=== PATIENT | male | born 1985 | race Caucasian/White ===

== ENCOUNTER → 2018-02-28 08:58 | Outpatient (CLI) | payer BC, SELFPAY ==
--- NOTE | 2018-02-28 09:03 | US_ITS ---
US abdomen complete HISTORY: ITS.REASON: LLQ PAIN ORDERING PHYSICIAN: Alysa Baxter PATIENT AGE: 33 years COMPARISON: None FINDINGS: PANCREAS:Unremarkable. No obvious mass or abnormal fluid collection. No ductal dilatation LIVER:There is diffuse fatty liver. No focal liver lesion or ductal dilatation. RIGHT KIDNEY:Unremarkable. Normal size and echogenicity. No hydronephrosis LEFT KIDNEY:Unremarkable. No hydronephrosis. Normal size and echogenicity. GALLBLADDER:No gallstones, gallbladder wall thickening, pericholecystic fluid, or biliary dilatation. AORTA:Not imaged SPLEEN:Unremarkable. Normal size and echogenicity ASCITES:None demonstrated. IMPRESSION: Diffuse fatty liver otherwise negative abdominal ultrasound
== END ==
PROVIDERS: Family Provider Internal Medicine Adolescent Medicine; PCP Internal Medicine Adolescent Medicine; Visit Provider Nurse Practitioner Family
DX: R10.32 Left lower quadrant pain (principal)
CPT/HCPCS: 76700

== ENCOUNTER 2019-12-30 08:41 | Emergency (ER) | payer BC, SELFPAY ==
[2019-12-30 08:53] VITALS: BP 127/69; PULSE 66; RESP 18; TEMP 37; O2SAT 99; BMI 39.3
--- NOTE | 2019-12-30 08:57 | CT_ITS ---
PROCEDURE: CT ABDOMEN PELVIS WO CON CLINICAL INDICATION: r/o stone Right flank pain COMPARISON: ABDPELW/O CT ABD PELVIS W/O CONTRAST from 07/28/2017 TECHNIQUE: Axial images obtained with sagittal and coronal reformats. All CT scans at the facility use one or more dose reduction, viz: automated exposure control, ma/kV adjustment per patient size (including targeted exams where dose is matched to indication, i.e. head), or iterative reconstruction technique. FINDINGS: LOWER THORAX: No acute finding ABDOMEN & PELVIS: There is diffuse fatty liver infiltration. The gallbladder, spleen, adrenal glands, and pancreas have an unremarkable appearance. There are scattered small bilateral renal calculi measuring up to 4 mm in the lower pole on the right and 5 mm in the lower pole on the left. There is mild right hydronephrosis and hydroureter secondary to a 5 mm stone at the right ureterovesical junction. There is some minimal stranding of the right perinephric and proximal periureteral fat. No evidence of appendicitis, intestinal obstruction, or free air. The IMPRESSION: 1. 5 mm right ureterovesical junction stone with mild right-sided obstructive uropathy. 2. Bilateral nephrolithiasis. 3. Fatty liver Dictated by: Viraj Huerta MD 12/30/2019 09:24 Electronically signed by Viraj Huerta MD in [place] 12/30/2019 09:24
[2019-12-30 09:02] LABS: Microscopic, Urine URINE MICROSCOPIC (MICROSCOPIC)
[2019-12-30 09:05] LABS: Appearance,Urine CLEAR (Clear); Bilirubin,Urine Negative (Negative); Blood, Urine 3+ (Negative); Color,Urine YELLOW (Yellow); Glucose,Urine (UA) Negative (Negative); Ketones,Urine Negative (Negative); Leukocyte Esterase,Urine Negative (Negative); Nitrate,Urine Negative (Negative); PH,Urine 6.5 (5.0-8.5); Protein,Urine 1+ (Negative); Specific Gravity, Urine 1.025 (1.005-1.030); Urobilinogen,Urine 0.2 EU/dl (0.2)
[2019-12-30 09:10] LABS: Alanine Aminotransferase 51 U/L (12-78); Albumin Level 4.8 g/dl (3.5-5.0); Albumin/Globulin Ratio 1.5 (1.1-1.8); Alkaline Phosphatase 67 U/L (38-126); Anion Gap 14.5 mEq/L (5-15); Aspartate Amino Transferase 51 U/L (17-59); Bilirubin,Total 0.4 mg/dl (0.2-1.3); Blood Urea Nitrogen 15 mg/dl (9-20); Calcium 9.7 mg/dl (8.4-10.2); Carbon Dioxide 25 mmol/L (22.0-30.0); Chloride 103 mmol/L (98-107); Creatinine Clearance Estimated 192 mL/min (50-200); Estimated Glomerular Filt Rate 85 ml/min (>60); GFR (African American) 103 ML/MIN (>60); Globulin 3.3 g/dL (1.3-3.2); Glucose 156 mg/dl (74-100); Potassium 3.5 mmoL/L (3.5-5.1); Sodium 139 mmol/L (136-145); Total Protein,Serum 8.1 g/dl (6.3-8.2)
[2019-12-30 09:15] LABS: Basophils % 0.3 % (0.1-2.0); Eosinophils % 0.1 % (0.1-12.0); Hematocrit 46.5 % (42.0-52.0); Hemoglobin 15.3 g/dL (14.1-18.0); Lymphocytes # 1.2 K/mm3 (0.7-4.5); Lymphocytes % 10.1 % (10-50); Mean Corpuscular HGB Conc 32.9 g/dL (31.8-35.4); Mean Corpuscular Volume 91.3 fl (80-94); Mean Platelet Volume 8.2 fl (7.4-10.4); Monocytes # 0.5 K/mm3 (0.1-1.0); Monocytes % 4.2 % (1.7-9.3); Neutrophils # 10.4 K/mm3 (1.8-7.8); Neutrophils % 85.2 % (37.0-80.0); Platelet Count 272 K/mm3 (142-424); Red Blood Count 5.09 M/mm3 (4.60-6.20); Red Cell Distribution Width 13.2 % (11.5-17.5); White Blood Count 12.2 K/mm3 (4.8-10.8)
[2019-12-30 09:18] LABS: WBC,Urine Occasional #/hpf (0-3)
[2019-12-30 09:19] LABS: Bacteria,Urine Trace /lpf; Squamous Epithelial Cell,Urine Occasional #/hpf (0-5)
[2019-12-30 09:22] LABS: MANUAL DIFFERENTIAL MANUAL DIFFERENTIAL (MANUAL DIFF)
[2019-12-30 09:28] LABS: Lymphocytes % 13 % (10-50); Monocytes % 5 % (2-9); Neutrophils % 82 % (42-76); Platelet Estimate Normal; RBC Morphology Normal; Total Cells Counted 100
[2019-12-30 09:36] VITALS: BP 123/69; PULSE 64; RESP 18; TEMP 36.7; O2SAT 98
--- NOTE | 2019-12-30 10:15 | PC.NURSE ---
dr chavarria returned call
--- NOTE | 2019-12-30 10:30 | PC.NURSE ---
Doc at bedside
--- NOTE | 2019-12-30 10:35 | PC.NURSE ---
call to dr chavarria
[2019-12-30 10:39] VITALS: BP 122/78; PULSE 78
--- NOTE | 2019-12-30 11:54 | HMH.EDGENADL ---
ED Disposition Clinical Impression: Low back pain, Stones, urinary tract Disposition: Home, Self-Care Condition on Discharge: Good Instructions: DI for Chronic Pain -- Adult, DI for Acute Pain -- Adult Additional Instructions: Please follow-up with Dr. Victor on morning. Prescriptions: Promethazine HCl 50 mg PO TID 8 Days #20 tab [id number] Ketorolac Tromethamine [Toradol 10mg tablet] 10 mg PO Q4H 5 Days #30 tab Transmission Status: Pending to [id number] Referrals: Juan Maguire MD [Primary Care Provider] - - Critical Care Critical Care Time: No Attestation: On 12/30/19, the high probability of a clinically significant, sudden or life threatening deterioration of the following system(s) required my full and direct attention, intervention and personal management. The time I documented below is in addition to time spent performing reported procedures but includes the following listed in this critical care notation. Medical Decision Making - Medical Records Medical records reviewed: Yes: I reviewed the patient's medical records. - Nas Inquiry Pt receiving controlled substance: No Vital Signs: 12/30/19 08:53 12/30/19 09:36 12/30/19 10:39 Temperature 98.6 F 98.1 F Temperature Source Oral Oral Pulse Rate [Left Radial] 66 64 78 Respiratory Rate 18 18 Blood Pressure [Right Arm] 127/69 123/69 122/78 Blood Pressure Mean [Right Arm] 88 87 92 Blood Pressure Source [Right Arm] Automatic Cuff Blood Pressure Position [Right Arm] Sitting Supine Sitting 02 Sat by Pulse Oximetry 99 98 Oxygen Delivery Method Room Air Room Air - Lab Data Lab results reviewed: Yes: I reviewed the patient's lab results. Lab Results 12/30/19 08:45: Urine Color Yellow, Urine Appearance Clear, Urine pH 6.5, Ur Specific [place] 1.025, Urine Protein 1+, Urine Glucose (UA) Negative, Urine Ketones Negative, Urine Blood 3+, Urine Nitrate Negative, Urine Bilirubin Negative, Urine Urobilinogen 0.2, Ur Leukocyte Esterase Negative, Urine RBC 10-20, Urine WBC Occasional, Ur Squamous Epith Cells Occasional, Urine Bacteria Trace 12/30/19 08:45: WBC 12.2 H, RBC 5.09, Hgb 15.3, Hct 46.5, MCV 91.3, MCH 30.0, MCHC 32.9, RDW 13.2, Plt Count 272, MPV 8.2, Neut % (Auto) 85.2 H, Lymph % (Auto) 10.1, [place] % (Auto) 4.2, Eos % (Auto) 0.1, Baso % (Auto) 0.3, Neut # (Auto) 10.4 H, Lymph # (Auto) 1.2, [place] # (Auto) 0.5, Eos # (Auto) 0.0, Baso # (Auto) 0.0, Total Counted 100, Neutrophils % (Manual) 82 H, Lymphocytes % (Manual) 13, Monocytes % (Manual) 5, Platelet Estimate Normal, RBC Morphology Normal 12/30/19 08:45: Sodium 139, Potassium 3.5, Chloride 103, Carbon Dioxide 25, Anion Gap 14.5, BUN 15, Creatinine 1.00, Estimated Creat Clear 192, Estimated GFR 85, Est GFR ( Amer) 103, Glucose 156 H, Calcium 9.7, Total Bilirubin 0.4, AST 51, ALT 51, Alkaline Phosphatase 67, Total Protein 8.1, Albumin 4.8, Globulin 3.3 H, Albumin/Globulin Ratio 1.5 Result diagrams: 12/30/19 08:45 12/30/19 08:45 Orders (Tests/Meds): ED MEDICATIONS Generic Name Dose Route Start Last Admin Trade Name Freq PRN Reason Stop Dose Admin Amlodipine Besylate 10 mg 12/30/19 12:00 12/30/19 10:35 Norvasc 10mg Tablet PO 01/29/20 11:59 10 mg DAILY ELIZA Administration Tamsulosin HCl 0.8 mg 12/30/19 21:00 12/30/19 10:35 Flomax 0.4mg Capsule PO 01/29/20 20:59 0.8 mg HS ELIZA Administration Discontinued Medications Generic Name Dose Route Start Last Admin Trade Name Freq PRN Reason Stop Dose Admin Hydromorphone HCl 1 mg 12/30/19 09:07 12/30/19 09:08 Dilaudid 2mg/Ml Syringe IV 12/30/19 09:08 1 mg ONCE ONE Administration Hydromorphone HCl 1 mg 12/30/19 11:49 12/30/19 10:25 Dilaudid 2mg/Ml Syringe IV 12/30/19 11:50 1 mg ONCE ONE Administration Sodium Chloride 1,000 mls @ 999 mls/hr 12/30/19 09:00 12/30/19 08:50 Sod Chlor 0.9% 1000ml Bag IV 12/30/19 10:00 999
[2019-12-30 12:31] VITALS: BP 122/78; PULSE 78; RESP 18; TEMP 36.7; O2SAT 98
== END 2019-12-30 12:37 | disposition home or self-care (01) ==
PROVIDERS: Emergency Provider Family Medicine; PCP Internal Medicine Adolescent Medicine
DX: N20.1 Calculus of ureter (principal); M54.5 Low back pain
CPT/HCPCS: 74176; 80053; 81001; 85007; 85025; 96365; 96366; 96367; 96375; 96376; 99284; J2405

== ENCOUNTER → 2020-01-02 09:58 | Outpatient (CLI) | payer BC, SELFPAY ==
--- NOTE | 2020-01-02 10:01 | XR_ITS ---
PROCEDURE: XR KUB CLINICAL INDICATION: kidney stone COMPARISON: CT ABDOMEN PELVIS WO CON from 12/30/2019 FINDINGS: There are multiple bilateral renal calculi. Right kidney is somewhat obscured by overlying feces. Stones measure up to 3 mm in the lower pole on the right and 4 mm in lower pole on the left. IMPRESSION: Bilateral nephrolithiasis Dictated by: Viraj Huerta MD 01/02/2020 13:09 Electronically signed by Viraj Huerta MD in [place] 01/02/2020 13:09
== END ==
PROVIDERS: PCP Internal Medicine Adolescent Medicine; Visit Provider Urology
DX: N20.0 Calculus of kidney (principal)
CPT/HCPCS: 74018

== ENCOUNTER → 2020-01-02 12:19 | Outpatient (CLI) | payer BC, SELFPAY ==
[2020-01-11 20:08] LABS: Size 4X4 mm; Specimen Type NOT PROVIDED
[2020-01-11 20:09] LABS: Ca oxalate dihydrate 10%; Composition SEE BELOW:
== END ==
PROVIDERS: Visit Provider Urology
DX: N20.0 Calculus of kidney (principal)
CPT/HCPCS: 82370

== ENCOUNTER 2020-06-23 17:33 | Emergency (ER) | payer BC, SELFPAY ==
[2020-06-23 18:01] VITALS: BP 151/96; PULSE 79; RESP 19; TEMP 36.6; O2SAT 100; BMI 40.0
--- NOTE | 2020-06-23 18:16 | HMH.EDUTC ---
[facility] Disposition Clinical Impression: Encounter for laboratory testing for COVID-19 virus, Exposure to COVID-19 virus Disposition: Home, Self-Care Condition on Discharge: Good Instructions: Preventing the Spread of Coronavirus Discharge Instructions Additional Instructions: *Monitor Temp, Over the counter Motrin or Tylenol as directed/as needed Tylenol every 4 hours and Motrin every 6 hours (as long as your family doctor has told you that you can take it) for fever or pain. and straight to ER if unable to lower temp less than 101.0 after medication given *Warm salt water gargles may help to soothe the throat *Throat Lozenges *Warm fluids like tea with honey may help to soothe the throat *Sleep elevated *Humidifier/Vaporizer Follow up IMMEDIATELY for new or worsening symptoms or no Noticeable improvement over the next 48-72 hours. 911 for difficulty breathing or swallowing You was tested for today for COVID19 your test result should be back later this evening, you may call back later this evening to see if your test results are back and the result You was given a handout with instructions for Self Quarantine and Self isolation for while you wait on test results and what to do if they are positive Referrals: Juan Maguire MD [Primary Care Provider] - As needed Forms: Work/School Release Time of Disposition: 18:24 Medical Decision Making - Nas Inquiry Pt receiving controlled substance: No Nas was queried for this patient: No Vital Signs: 06/23/20 18:01 Temperature 97.8 F Temperature Source Oral Pulse Rate [Right Brachial] 79 Respiratory Rate 19 Blood Pressure [Right Arm] 151/96 H Blood Pressure Mean [Right Arm] 114 Blood Pressure Source [Right Arm] Automatic Cuff Blood Pressure Position [Right Arm] Sitting 02 Sat by Pulse Oximetry 100 Oxygen Delivery Method Room Air Orders (Tests/Meds): ORDERS Category Date Time Status Covid-19 Nasal PCR ([facility]) Routine Lab 06/23/20 18:[address] [facility] HPI - General Stated complaint: covid test Time Seen by Provider: 06/23/20 18:16 Mode of Arrival: Ambulatory Source of Information: Patient Limitations: No Limitations Description of Symptoms (Recalled from Triage Doc. by RN): PATIENT REQUESTING COVID TEST D/T EXPOSURE. DENIES SYMPTOMS HEENT Symptoms (Recalled from RN notes): No Resp Symptoms (Recalled from RN notes): No Skin Symptoms (Recalled from RN notes): No MS Symptoms (Recalled from RN notes): No Functional Status (Recalled from RN notes): WNL - History of Present Illness Provider Complaint: Patient states that he was around someone over the weekend at work that tested positive for COVID States that he hasnt been having any symptoms but due to close contact work wanted him to be tested - Related Data Home Medications Medication Instructions Recorded Confirmed fluticasone propionate 50 1 spray INTRANASAL BID PRN 02/06/18 06/22/19 mcg/actuation nasal spray,suspension Levocetirizine Dihydrochloride 5 mg PO BID 06/22/19 06/22/19 Previous Rx's Medication Instructions Recorded Ketorolac Tromethamine [Toradol 10 mg PO Q4H 5 Days #30 tab 12/30/19 10mg tablet] Promethazine HCl 50 mg PO TID 8 Days #20 tab 12/30/19 Allergies Allergy/AdvReac Type Severity Reaction Status Date / Time No Known Allergies Allergy Verified 01/02/20 11:01 - Worker's Comp Is this a Worker's Comp case?: No [facility] History - Hepatitis A Screen Drug use history?: No High risk sexual behaviors?: No History of sexually transmitted infection?: No Currently employed?: No Childcare worker?: No Do you have indoor plumbing?: Yes Do you have electricity?: Yes Attestation statement:: This patient has been screened for Hepatitis A risk factors. I have reviewed the patient's past medical history: Yes Medical History: Reports:: Kidney Stones Other Medical History: Reports: Arthritis Other Surgeries: Yes: No Previous Surgery Amputation: No Fract
[2020-06-23 18:31] VITALS: BP 151/96; PULSE 79; RESP 19; TEMP 36.6; O2SAT 100
== END 2020-06-23 18:34 | disposition home or self-care (01) ==
PROVIDERS: Emergency Provider Nurse Practitioner; PCP Internal Medicine Adolescent Medicine
DX: Z20.828 Contact with and (suspected) exposure to other viral communicable diseases (principal)
CPT/HCPCS: 99201; U0003

== ENCOUNTER → 2020-06-27 07:21 | Outpatient (CLI) | payer BC, SELFPAY ==
[2020-06-28 08:39] LABS: Covid-19 Nasal PCR Sendout UK Not Detected
== END ==
PROVIDERS: PCP Internal Medicine Adolescent Medicine; Visit Provider Internal Medicine Adolescent Medicine
DX: Z03.818 Encounter for observation for suspected exposure to other biological agents ruled out (principal)
CPT/HCPCS: U0003

== ENCOUNTER 2020-07-05 17:21 | Emergency (ER) | payer BC, SELFPAY ==
[2020-07-05 17:25] VITALS: BP 128/89; PULSE 72; RESP 18; O2SAT 97; BMI 40.6
--- NOTE | 2020-07-05 17:37 | XR_ITS ---
PROCEDURE: XR CHEST PORTABLE CLINICAL HISTORY: cough COMPARISON: No exams were available for comparison FINDINGS: Mild cardiomegaly without failure. There are low lung volumes with vascular crowding in the lung bases. No lobar consolidation or collapse. No acute bony abnormalities. IMPRESSION: Low lung volumes. Mild cardiomegaly otherwise negative Dictated by: Viraj Huerta MD 07/06/2020 05:35 Viraj Huerta MD in [place] 07/06/2020 05:35
--- NOTE | 2020-07-05 17:37 | ECG_ITS ---
APPROVED REPORT Exam: Resting ECG HR:62 bpm ECG Measurements Heart Rate 62 AXES MS 142 P 55 QRSd 92 QRS 50 QT 438 T 44 QTc 444 Conclusion Normal sinus rhythm Normal ECG Electronically signed by : Khai Floyd, 07/10/2020 11:33:32
[2020-07-05 17:50] LABS: Alanine Aminotransferase 43 U/L (12-78); Albumin Level 4.6 g/dl (3.5-5.0); Albumin/Globulin Ratio 1.4 (1.1-1.8); Alkaline Phosphatase 80 U/L (38-126); Anion Gap 16.1 mEq/L (5-15); Aspartate Amino Transferase 57 U/L (17-59); Bilirubin,Total 0.4 mg/dl (0.2-1.3); Blood Urea Nitrogen 13 mg/dl (9-20); Calcium 9.7 mg/dl (8.4-10.2); Carbon Dioxide 23 mmol/L (22.0-30.0); Chloride 107 mmol/L (98-107); Creatinine Clearance Estimated 218 mL/min (50-200); Estimated Glomerular Filt Rate 95 ml/min (>60); GFR (African American) 116 ML/MIN (>60); Globulin 3.4 g/dL (1.3-3.2); Glucose 130 mg/dl (74-100); Lipase 127 U/L (23-300); Potassium 4.1 mmoL/L (3.5-5.1); Sodium 142 mmol/L (136-145)
--- NOTE | 2020-07-05 17:53 | HMH.EDNVD ---
ED Disposition Condition on Discharge: Good - Critical Care Critical Care Time: No <BronwynJaison - Last Filed: 07/05/20 19:06> Condition on Discharge: Good <Yusuf Eugene - Last Filed: 07/05/20 21:07> Clinical Impression: Vasovagal near syncope, Gastroenteritis Disposition: Home, Self-Care Instructions: DI for Syncope in Adults (Fainting) Prescriptions: Ondansetron [Zofran 4mg ODT] 4 mg PO TIDP PRN #8 tab PRN Reason: Nausea Transmission Status: Received by [id number] Referrals: Juan Maguire MD [Primary Care Provider] - Attestation: On 07/05/20, the high probability of a clinically significant, sudden or life threatening deterioration of the following system(s) required my full and direct attention, intervention and personal management. The time I documented below is in addition to time spent performing reported procedures but includes the following listed in this critical care notation. Medical Decision Making - Medical Records Medical records reviewed: Yes: I reviewed the patient's medical records. - Nas Inquiry Pt receiving controlled substance: No - Lab Data Result diagrams: 07/05/20 17:31 07/05/20 17:31 - ECG Data Tracing #1 ECG initial impression date: 07/05/20 ECG initial impression time: 17:50 - Reevaluation(s) Time: 19:06 <BronwynJaison - Last Filed: 07/05/20 19:06> - Lab Data Result diagrams: 07/05/20 17:31 07/05/20 17:31 - Reevaluation(s) Time: 21:05 <Yusuf Eugene - Last Filed: 07/05/20 21:07> Vital Signs: 07/05/20 17:25 07/05/20 18:00 07/05/20 18:30 Pulse Rate [Left Radial] 72 63 62 Respiratory Rate 18 18 18 Blood Pressure [Left Arm] 128/89 122/87 127/86 Blood Pressure Mean [Left Arm] 102 98 99 Blood Pressure Source [Left Arm] Automatic Cuff Automatic Cuff Automatic Cuff Blood Pressure Position [Left Arm] Sitting Sitting Sitting 02 Sat by Pulse Oximetry 97 100 100 Oxygen Delivery Method Room Air Room Air Room Air 07/05/20 19:02 07/05/20 20:34 Pulse Rate [Left Radial] 56 L 66 Respiratory Rate 18 18 Blood Pressure [Left Arm] 120/83 120/80 Blood Pressure Mean [Left Arm] 95 93 Blood Pressure Source [Left Arm] Automatic Cuff Blood Pressure Position [Left Arm] Sitting 02 Sat by Pulse Oximetry 100 99 Oxygen Delivery Method Room Air Room Air - Lab Data Lab Results 07/05/20 17:25: Urine Color Yellow, Urine Appearance Clear, Urine pH 5.5, Ur Specific [place] >= 1.030, Urine Protein Negative, Urine Glucose (UA) Negative, Urine Ketones Negative, Urine Blood 1+, Urine Nitrate Negative, Urine Bilirubin Negative, Urine Urobilinogen 0.2, Ur Leukocyte Esterase Negative, Urine RBC 3-5 07/05/20 17:31: WBC 7.5, RBC 5.27, Hgb 15.7, Hct 47.2, MCV 89.5, MCH 29.7, MCHC 33.2, RDW 13.6, Plt Count 296, MPV 8.5, Neut % (Auto) 53.3, Lymph % (Auto) 37.6, [place] % (Auto) 5.4, Eos % (Auto) 3.3, Baso % (Auto) 0.4, Neut # (Auto) 4.0, Lymph # (Auto) 2.8, [place] # (Auto) 0.4, Eos # (Auto) 0.2, Baso # (Auto) 0.0 07/05/20 17:31: Sodium 142, Potassium 4.1, Chloride 107, Carbon Dioxide 23, Anion Gap 16.1 H, BUN 13, Creatinine 0.90, Estimated Creat Clear 218, Estimated GFR 95, Est GFR ( Amer) 116, Glucose 130 H, Calcium 9.7, Total Bilirubin 0.4, AST 57, ALT 43, Alkaline Phosphatase 80, Troponin I < 0.01, Total Protein 8.0, Albumin 4.6, Globulin 3.4 H, Albumin/Globulin Ratio 1.4, Lipase 127, TSH 1.48 07/05/20 20:32: Troponin I < 0.01 Orders (Tests/Meds): ED MEDICATIONS Generic Name Dose Route Start Last Admin Trade Name Freq PRN Reason Stop Dose Admin Sodium Chloride 1,000 mls @ 999 mls/hr 07/05/20 17:45 07/05/20 17:42 Sod Chlor 0.9% 1000ml Bag IV 07/05/20 18:45 999 mls/hr .[id number] ELIZA Administration Discontinued Medications Generic Name Dose Route Start Last Admin Trade Name Freq PRN Reason Stop Dose Admin Ondansetron HCl 4 mg 07/05/20 17:40 07/05/20 17:42 Ondansetron 4mg/2ml Vial IV 07/05/20 17:41 4 mg ONCE ON
[2020-07-05 17:54] LABS: Basophils % 0.4 % (0.1-2.0); Eosinophils # 0.2 K/mm3 (0.0-0.4); Eosinophils % 3.3 % (0.1-12.0); Hematocrit 47.2 % (42.0-52.0); Hemoglobin 15.7 g/dL (14.1-18.0); Lymphocytes # 2.8 K/mm3 (0.7-4.5); Lymphocytes % 37.6 % (10-50); Mean Corpuscular HGB Conc 33.2 g/dL (31.8-35.4); Mean Corpuscular Hemoglobin 29.7 pg (27.0-31.2); Mean Corpuscular Volume 89.5 fl (80-94); Mean Platelet Volume 8.5 fl (7.4-10.4); Monocytes # 0.4 K/mm3 (0.1-1.0); Monocytes % 5.4 % (1.7-9.3); Neutrophils % 53.3 % (37.0-80.0); Platelet Count 296 K/mm3 (142-424); Red Blood Count 5.27 M/mm3 (4.60-6.20); Red Cell Distribution Width 13.6 % (11.5-17.5); White Blood Count 7.5 K/mm3 (4.8-10.8)
--- NOTE | 2020-07-05 17:58 | PC.NURSE ---
rad at bs for potable xray
[2020-07-05 18:00] VITALS: BP 122/87; PULSE 63; RESP 18; O2SAT 100
[2020-07-05 18:06] LABS: Troponin I < 0.01 ng/ml (0.00-0.034)
[2020-07-05 18:11] LABS: Microscopic, Urine URINE MICROSCOPIC (MICROSCOPIC)
[2020-07-05 18:21] LABS: Thyroid Stimulating Hormone 1.48 uIU/mL (0.465-4.68)
[2020-07-05 18:28] LABS: Appearance,Urine CLEAR (Clear); Bilirubin,Urine Negative (Negative); Blood, Urine 1+ (Negative); Color,Urine YELLOW (Yellow); Glucose,Urine (UA) Negative (Negative); Ketones,Urine Negative (Negative); Leukocyte Esterase,Urine Negative (Negative); Nitrate,Urine Negative (Negative); PH,Urine 5.5 (5.0-8.5); Protein,Urine Negative (Negative); Specific Gravity, Urine >= 1.030 (1.005-1.030); Urobilinogen,Urine 0.2 EU/dl (0.2)
[2020-07-05 18:30] VITALS: BP 127/86; PULSE 62; RESP 18; O2SAT 100
--- NOTE | 2020-07-05 19:01 | PC.NURSE ---
shift change report given to normarn
[2020-07-05 19:02] VITALS: BP 120/83; PULSE 56; RESP 18; O2SAT 100
[2020-07-05 20:34] VITALS: BP 120/80; PULSE 66; RESP 18; O2SAT 99
[2020-07-05 21:02] LABS: Troponin I < 0.01 ng/ml (0.00-0.034)
[2020-07-05 21:20] VITALS: BP 123/68; PULSE 78; RESP 19; TEMP 36.6; O2SAT 99
== END 2020-07-05 21:22 | disposition home or self-care (01) ==
PROVIDERS: Emergency Medicine; Emergency Provider Student in an Organized Health Care Education/Training Program; PCP Internal Medicine Adolescent Medicine
DX: R55 Syncope and collapse (principal); K52.9 Noninfective gastroenteritis and colitis, unspecified; Z87.442 Personal history of urinary calculi
CPT/HCPCS: 71045; 80053; 81001; 83690; 84443; 84484; 85025; 93005; 96365; 96375; 99284; J2405

== ENCOUNTER 2020-08-11 09:00 | Outpatient (RCR) | payer BC, SELFPAY ==
--- NOTE | 2020-06-30 17:12 | HMH.PTOPEV ---
PT Outpatient Evaluation Rehab PT Outpatient Evaluation Start: 06/30/20 16:54 Freq: Status: Active Protocol: Document 06/30/20 16:54 ABHIJIT (Rec: 06/30/20 17:11 ABHIJIT [id number]) Electronically Signed By Jerald Otoole, PT 06/30/20 16:54 Outpatient Therapy Subjective History Subjective History Patient is a 35 year old male presenting to outpatient PT with reports of R knee pain of insidious onset starting approximately 2 months ago that has progressively gotten worse. No recent imaging to report. Patient reports main complaint of pain with kneeling. Symptoms specific to distal IT band insertion and patellar tendon. Comorbidities include hx of R knee arthroscopy. Chief Complaint Pain,Clicks Symptom Type Sharp,Tingling,Shooting Symptoms Relieved By Rest/Positioning,Prescription Meds Symptoms Aggravated By Standing,Bending/Stooping, Physical Activity,Walking Prior Functional Limitations None Current Functional Limitations Housework,Standing,Squatting, Recreation Activity,Walking, Stairs,Bending/Stooping Symptom Description Intermittent Level of pain today (0-10) 1 Pain scale - at its best (0-10) 0 Pain scale - at its worst (0-10) 8 Hip/Knee Eval Gait Observation General Gait Pattern Observation No Deviations/Normal Assistive Device Assistive Devices None / NA Palpation Tenderness right Knee Palpation Finding Tenderness Knee Palpation Overall Comment Lateral joint line/LCL/distal ITB insertion 3/4 MMT Hip Flexion Strength Grade 5 Normal Hip Abduction Strength Grade 5 Normal Hip Adduction Strength Grade 5 Normal Hip Extension Strength Grade 5 Normal Hip External Rotation Strength Grade 4- Good- Hip Internal Rotation Strength Grade 4- Good- Knee Extension Strength Grade 4 Good Knee Flexion Strength Grade 5 Normal ROM bilateral Hip ROM Reason Not Measured Within Functional Limits Knee ROM Reason Not Measured Within Functional Limits Special Tests Hip Chanel Test Positive Right Knee Anterior [place] Test Negative Right Knee Pivot Shift Test Negative Right Knee Valgus Stress Test Negative Right Knee Varus Stress Test Negative Right Knee Birgit Test
--- NOTE | 2020-08-11 10:15 | HMH.RHREAS ---
Rehab Reassessment Rehab OP Re-assessment Start: 08/11/20 08:56 Freq: Status: Active Protocol: Document 08/11/20 09:41 ABHIJIT (Rec: 08/11/20 10:14 [email or web address] [id number]) Electronically Signed By Jerald Otoole, PT 08/11/20 09:41 Rehab Re-assessment Subjective Subjective Patient reports 75% improvement since start of care. Objective Objective Notes AROM: R knee flx 120 L knee flx 127; R knee ext -2; L knee ext 0 MMT: WNL Pain: 1/10 today; 5/10 at worst over past week Neuro: WNL TTP: head of fibula/distal LCL 2/4 Assessment Progress Assessment Progressing as Expected Assessment Notes Patient is tolerating progession of Rx well. Patient reports overall improvements with standing and ambulatory activities. Persistent difficulty with stairs and household activities noted. Patient would benefit from continuing skilled PT services to progess RLE stability and anti- inflammatory modalities. Patient goals met STG's; LTG 2 Goals Not Met All other LTG's Revised Goals NA Plan Plan Continue with current POC Frequency of Therapy 2x/week Duration of therapy 3 weeks Time and Billing Re-Eval Time 15 Re-Eval Billing Units 1 PHYSICIAN CERTIFICATION: I certify the specified therapy services for Michele Jackson are required, authorized, and reviewed every 30 days.
== END 2020-08-11 09:05 | disposition home or self-care (01) ==
LOC: PT 09:00
PROVIDERS: PCP Internal Medicine Adolescent Medicine; Visit Provider Internal Medicine Adolescent Medicine
DX: M25.561 Pain in right knee; S83.91XA Sprain of unspecified site of right knee, initial encounter
CPT/HCPCS: 97010; 97014; 97033; 97035; 97110; 97163; 97164; G0283

== ENCOUNTER → 2021-01-01 10:52 | Outpatient (CLI) | payer BC, SELFPAY ==
--- NOTE | 2021-01-01 10:56 | XR_ITS ---
PROCEDURE: XR KUB CLINICAL INDICATION: ureteral stone COMPARISON: CT CT ABDOMEN PELVIS WO CON from 12/30/2019 CR XR KUB from 01/02/2020 FINDINGS: There are bilateral renal calculi in both upper and lower poles of the kidneys. Left renal stones measure up to 5 mm. Stones on the right measure up to 4 mm. No obvious ureteral calculi. IMPRESSION: No change bilateral nephrolithiasis Dictated by: Viraj Huerta MD 01/01/2021 13:41 Viraj Huerta MD in [place] 01/01/2021 13:41
== END ==
PROVIDERS: PCP Internal Medicine Adolescent Medicine; Visit Provider Urology
DX: N20.1 Calculus of ureter (principal)
CPT/HCPCS: 74018

== ENCOUNTER → 2021-05-11 15:18 | Outpatient (CLI) | payer BC, SELFPAY ==
--- NOTE | 2021-05-11 15:21 | XR_ITS ---
PROCEDURE: XR KUB CLINICAL INDICATION: kidney stone COMPARISON: CT CT ABDOMEN PELVIS WO CON from 12/30/2019 CR XR KUB from 01/01/2021 FINDINGS: There are multiple bilateral renal calculi ranging in size from 1-3 mm. No ureteral calculi parent. No significant change 01/01/2021. IMPRESSION: Bilateral nephrolithiasis Dictated by: Viraj Huerta MD 05/11/2021 17:04 Viraj Huerta MD in [place] 05/11/2021 17:04
== END ==
PROVIDERS: PCP Internal Medicine Adolescent Medicine; Visit Provider Urology
DX: N20.0 Calculus of kidney (principal)
CPT/HCPCS: 74018

== ENCOUNTER → 2021-05-25 12:05 | Outpatient (CLI) | payer BC, SELFPAY | PROVIDERS: PCP Internal Medicine Adolescent Medicine; Visit Provider Nurse Practitioner | DX: Z20.822 Contact with and (suspected) exposure to COVID-19 (principal) | CPT/HCPCS: C9803; U0003; U0005 ==

== ENCOUNTER → 2021-09-28 16:53 | Outpatient (CLI) | payer BC, SELFPAY | PROVIDERS: PCP Internal Medicine Adolescent Medicine; Visit Provider Nurse Practitioner | DX: U07.1 COVID-19 (principal) | CPT/HCPCS: C9803; U0003; U0005 ==

== ENCOUNTER → 2021-10-04 08:34 | Outpatient (CLI) | payer BC, SELFPAY | PROVIDERS: Visit Provider Nurse Practitioner | DX: U07.1 COVID-19 (principal) | CPT/HCPCS: C9803; U0003; U0005 ==

== ENCOUNTER → 2021-10-12 16:58 | Outpatient (CLI) | payer BC, SELFPAY ==
--- NOTE | 2021-10-12 17:06 | MR_ITS ---
PROCEDURE INFORMATION: Exam: MR Head Without Contrast Exam date and time: 10/12/2021 5:06 PM Age: 36 years old Clinical indication: Pain; Headache; Migraine; Without aura; Additional info: Intractable migraine without aura. Migraine headache since covid x2wks ago with vertigo. TECHNIQUE: Imaging protocol: MR of the head without contrast. COMPARISON: No relevant prior studies available. FINDINGS: Brain: No bleed, mass, or shift of structures. Basilar cisterns are normal. No diffusion restricted segments. Pre-pontine region, suprasellar region, and cerebellar angles are normal. No acute intracranial process. Cerebral ventricles: Normal. No ventriculomegaly. Pituitary gland and sella: Sella normal. Bones/joints: Clivus normal. Calvarium is normal marrow signal. Paranasal sinuses: Normal as visualized. No acute sinusitis. Mastoid air cells: Normal as visualized. No mastoid effusion. Orbital cavity: Unremarkable. Soft tissues: Soft tissues are unremarkable Other findings: Diploe is normal. Tectum normal. IMPRESSION: No acute intracranial process.
== END ==
PROVIDERS: PCP Internal Medicine Adolescent Medicine; Visit Provider Internal Medicine Adolescent Medicine
DX: R42 Dizziness and giddiness (principal); G43.011 Migraine without aura, intractable, with status migrainosus
CPT/HCPCS: 70551

== ENCOUNTER → 2021-10-13 07:55 | Outpatient (CLI) | payer BC, SELFPAY ==
--- NOTE | 2021-10-13 08:07 | CT_ITS ---
FINAL REPORT CLINICAL HISTORY: SOB,CORONAVIRUS INFECTION X 2 WEEKS AGO FINDINGS: Axial CT images of the chest were obtained with contrast. Coronal reformatted images were also obtained. This study was performed with techniques to keep radiation doses as low as reasonably achievable, (ALARA). Individualized dose reduction techniques using automated exposure control or adjustment of mA and/or KV according to the patient''''s size were employed. There is no evidence of mediastinal or hilar mass or adenopathy.No axillary mass or adenopathy is identified. On lung window images, there are several small left lower lobe nodules measuring up to 7 mm, nonspecific but favored to be inflammatory. There is a calcified granuloma in the right lower lobe. Limited images of the upper abdomen reveal a fatty infiltrated liver. On the bone window images there is noted to be bony overgrowth of the distal 4th left rib extending into the anterior left thorax. It is uncertain if this represents a congenital variant or an osteochondroma. It measures up to 23 mm in length. IMPRESSION: Several small left lower lobe nodules, nonspecific but favor inflammatory. 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 Uncertain if it represents congenital variant or an osteochondroma. Follow-up CT in 6 months may be helpful. Reviewed, Interpreted and Dictated by Vidal Linton III, MD Transcribed by Faye Osborne Authenticated by Vidal Linton III, MD on 10/13/2021 10:45:28 AM [facility]
== END ==
LOC: RAD 07:56
PROVIDERS: PCP Internal Medicine Adolescent Medicine; Visit Provider Internal Medicine Adolescent Medicine
DX: R06.02 Shortness of breath (principal); U09.9 Post COVID-19 condition, unspecified
CPT/HCPCS: 71260; Q9967

== ENCOUNTER → 2021-11-17 07:58 | Outpatient (CLI) | payer BC, SELFPAY ==
--- NOTE | 2021-11-17 | CA_ITS ---
FINAL REPORT TECHNIQUE: Color Doppler, duplex Doppler and brito scale sonography of the bilateral neck arterial vasculature was performed. Velocities were measured in the carotid arteries. Stenosis evaluation based on the validated velocity criteria. CLINICAL HISTORY: Post Covid infection: Migraines with vertigo & nausea FINDINGS: The peak systolic velocity of the right common carotid artery is 73 cm/s. The peak systolic velocity of the right internal carotid artery is 75 cm/s and end diastolic velocity 40 cm/s. The ICA/CCA ratio is 1.0. A small amount of plaque is present. The right external carotid artery is patent. The right vertebral artery is patent with antegrade flow. The peak systolic velocity of the left common carotid artery is 83 cm/s. The peak systolic velocity of the left internal carotid artery is 92 cm/s and end diastolic velocity 47 cm/s. The ICA/CCA ratio is 1.1. A small amount of plaque is present. The left external carotid artery is patent.The left vertebral artery is patent with antegrade flow. IMPRESSION: Less than 50% bilateral carotid stenosis. Bilateral patent vertebral arteries with antegrade flow. Reviewed, Interpreted and Dictated by Vidal Linton III, MD Transcribed by Faye Osborne Authenticated by Vidal Linton III, MD on 11/17/2021 10:22:47 AM [facility]
== END ==
LOC: RT 07:59
PROVIDERS: PCP Internal Medicine Adolescent Medicine; Visit Provider Nurse Practitioner Family
DX: R42 Dizziness and giddiness (principal)
CPT/HCPCS: 93880

== ENCOUNTER → 2022-03-07 15:52 | Outpatient (CLI) | payer OTHER, SELFPAY ==
--- NOTE | 2022-03-07 15:59 | XR_ITS ---
FINAL REPORT CLINICAL HISTORY: SPRAIN OF OTHER LIGAMENT OF RT ANKLE, INITIAL ENCOUNTER, pt states that he twisted his ankle stepping off a trailer 1-2 weeks ago. FINDINGS: RIGHT ANKLE: Three views of the right ankle were obtained. There is no acute fracture or dislocation. The joint spaces and mortise are intact. There is a small plantar calcaneal spur. There is soft tissue swelling. IMPRESSION: Swelling with no acute bony abnormality. Reviewed, Interpreted and Dictated by Vidal Linton III, MD Transcribed by Faye Osborne Authenticated and [facility]
== END ==
PROVIDERS: PCP Internal Medicine Adolescent Medicine; Visit Provider Internal Medicine Adolescent Medicine
DX: S93.491A Sprain of other ligament of right ankle, initial encounter (principal)
CPT/HCPCS: 73610

== ENCOUNTER → 2022-04-13 15:08 | Outpatient (CLI) | payer OTHER, SELFPAY ==
--- NOTE | 2022-04-13 15:12 | CT_ITS ---
FINAL REPORT TECHNIQUE: Axial images were obtained from the lung apex to the mid abdomen by computed tomography. Coronal reformatted images were obtained. This study was performed with techniques to keep radiation doses as low as reasonably achievable, (ALARA). Individualized dose reduction techniques using automated exposure control or adjustment of mA and/or kV according to the patient''s size were employed. CLINICAL HISTORY: BONY ABNORMALITY on rib FINDINGS: There is no axillary adenopathy. There is no hilar or mediastinal adenopathy. Heart size is normal. There is no pericardial or pleural effusion. Limited images of the upper abdomen demonstrate a less than 3 mm nonobstructing left renal stone. The liver is fatty infiltrated. Right lower lobe nodules have improved. There are calcified granulomas in both lower lobes. No new mass or nodule is identified. Again noted is a bony protuberance extending into the left anterior thorax from the left 4th anterior rib measuring up to 23 mm. It is stable in size in appearance. IMPRESSION: Again noted bony protuberance as described, congenital variant versus osteochondroma. Improved right lower lobe nodules. No new mass or nodules identified. Reviewed, Interpreted and Dictated by Vidal Linton III, MD Transcribed by Faye Osborne Authenticated and [facility]
== END ==
LOC: RAD 15:08
PROVIDERS: PCP Internal Medicine Adolescent Medicine; Visit Provider Internal Medicine Adolescent Medicine
DX: Q79.9 Congenital malformation of musculoskeletal system, unspecified (principal)
CPT/HCPCS: 71250

== ENCOUNTER → 2022-05-10 15:10 | Outpatient (CLI) | payer OTHER, SELFPAY ==
--- NOTE | 2022-05-10 15:13 | XR_ITS ---
FINAL REPORT CLINICAL HISTORY: kidney stone COMPARISON: May 11, 2021 FINDINGS: There is a nonobstructive bowel gas pattern. There are no abnormally dilated loops of small bowel. There are bilateral renal stones measuring up to 5 mm on the right and 6 mm on the left. IMPRESSION: Bilateral nephrolithiasis is suspected to be worse since the prior exam although the renal outlines were obscured on the prior exam. Reviewed, Interpreted and Dictated by Vidal Linton III, MD Transcribed by Cr Bone Authenticated and [facility]
== END ==
PROVIDERS: PCP Internal Medicine Adolescent Medicine; Visit Provider Urology
DX: N20.0 Calculus of kidney (principal)
CPT/HCPCS: 74018

== ENCOUNTER 2023-03-19 01:11 | Emergency (ER) | payer OTHER, SELFPAY ==
[2023-03-19 01:12] VITALS: BP 164/110; PULSE 87; RESP 16; TEMP 37.1; O2SAT 98; BMI 42.7
[2023-03-19 01:24] VITALS: BMI 42.7
--- NOTE | 2023-03-19 01:25 | ECG_ITS ---
APPROVED REPORT Exam: Resting ECG HR:90 bpm ECG Measurements Heart Rate 90 AXES UT 158 P 67 QRSd 92 QRS 67 QT 344 T 54 QTc 391 Conclusion SINUS RHYTHM NORMAL ECG UNCONFIRMED REPORT Electronically signed by : Juan Maguire MD 03/20/2023 14:03:48
--- NOTE | 2023-03-19 01:25 | XR_ITS ---
PROCEDURE INFORMATION: Exam: XR Chest Exam date and time: 03/19/2023 1:23 AM Age: 38 years old Clinical indication: Other: Dizziness TECHNIQUE: Imaging protocol: Radiologic exam of the chest. Views: 2 views. COMPARISON: CT CHEST WO CON 04/13/2022 3:12 PM FINDINGS: Lungs: Clear, symmetrically inflated lungs. Pleural spaces: No pleural effusion. No pneumothorax. Heart/Mediastinum: Cardiac silhouette is normal in size for technique. Bones/joints: Age appropriate. IMPRESSION: No acute cardiopulmonary abnormality.
[2023-03-19 01:31] LABS: Basophils # 0.1 K/mm3 (0-0.2); Basophils % 0.5 % (0.1-2.0); Eosinophils # 0.2 K/mm3 (0.0-0.4); Eosinophils % 1.8 % (0.1-12.0); Hematocrit 46.7 % (42.0-52.0); Hemoglobin 14.9 g/dL (14.1-18.0); Lymphocytes # 2.2 K/mm3 (0.7-4.5); Lymphocytes % 21.5 % (10-50); Mean Corpuscular Hemoglobin 28.6 pg (27.0-31.2); Mean Corpuscular Volume 89.3 fl (80-94); Mean Platelet Volume 8.2 fl (7.4-10.4); Monocytes # 0.5 K/mm3 (0.1-1.0); Monocytes % 4.6 % (1.7-9.3); Neutrophils # 7.3 K/mm3 (1.8-7.8); Neutrophils % 71.7 % (37.0-80.0); Platelet Count 293 K/mm3 (142-424); Red Blood Count 5.23 M/mm3 (4.60-6.20); Red Cell Distribution Width 13.7 % (11.5-17.5); White Blood Count 10.2 K/mm3 (4.8-10.8)
[2023-03-19 01:35] LABS: Blood Urea Nitrogen 13 mg/dl (9-20); Creatinine Clearance Estimated 109 mL/min (50-200); Estimated Glomerular Filt Rate 83 ml/min (>60); GFR (African American) 101 ML/MIN (>60)
[2023-03-19 01:36] LABS: Alanine Aminotransferase 39 U/L (12-78); Albumin Level 4.7 g/dl (3.5-5.0); Albumin/Globulin Ratio 1.3 (1.1-1.8); Alkaline Phosphatase 77 U/L (38-126); Aspartate Amino Transferase 40 U/L (17-59); Bilirubin,Total 0.5 mg/dl (0.2-1.3); Calcium 9.4 mg/dl (8.4-10.2); Carbon Dioxide 30 mmol/L (22.0-30.0); Globulin 3.6 g/dL (1.3-3.2); Glucose 121 mg/dl (74-100); Total Protein,Serum 8.3 g/dl (6.3-8.2)
[2023-03-19 01:41] LABS: C-Reactive Protein 3.3 mg/L (0-4)
[2023-03-19 01:45] LABS: Chloride 102 mmol/L (98-107); Sodium 140 mmol/L (136-145)
[2023-03-19 01:57] LABS: Troponin I < 0.01 ng/ml (0.00-0.034)
[2023-03-19 02:01] LABS: Erythrocyte Sedimentation Rate 6 mm/hr (0-15)
--- NOTE | 2023-03-19 02:14 | HMH.EDDIZZ ---
Discharge Plan Disposition Patient Disposition: Home, Self-Care Prescriptions Prescriptions: New lisinopril 10 mg tablet 10 mg PO DAILY Qty: 30 0RF No Action fluticasone propionate [Flonase Allergy Relief] 50 mcg/actuation spray,suspension 1 spray INTRANASAL BID PRN (Reason: ALLERGY) rosuvastatin 20 mg tablet 20 mg PO DAILY Patient Comments: TAKE 1 TABLET BY MOUTH ONCE DAILY AT BEDTIME Ubrelvy 100 mg tablet 100 mg PO ONCE levocetirizine 5 MG tablet 5 mg PO BID propranolol 10 mg tablet 10 mg PO BID Patient Comments: TAKE 1 TABLET BY MOUTH TWICE DAILY Referrals Follow up/Referrals: Juan Maguire MD [Primary Care Provider] - See instructions Clinical Impressions Clinical Impression: Hypertensive urgency Instructions Patient Instructions: DI for High Blood Pressure, DI for Dizziness-Nonvertigo Discharge ED Provider: Tiff (ED)Oneal HPI General Chief Complaint: Dizziness Stated Complaint: HBP; dizzy Time Seen by Provider: 03/19/23 02:00 Mode of Arrival: Wheelchair Source of Information: Patient and Medical Record Limitations: No Limitations Description of Symptoms (Recalled from ER Triage Doc. by RN): pt states have a dizzy episode with diaphoresis @ 11:30 pt took a dose of ubrelvy. pt then took blood pressure read 170/100. pt took HTN meds late tonight. pt currently feels fine. History of Present Illness HPI Narrative: elevated bp and dizzyness w/o focal neuro sx complaint: dizziness Onset (ago): hour(s) Timing: gradual onset Description: lightheadedness History of similar episodes: No History of trauma: No Severity: moderate Relieving factors: nothing Exacerbating factors: movement Associated symptoms: denies other symptoms Related Data Home Medications Medication Instructions Recorded Confirmed fluticasone propionate 50 1 spray intranasal BID PRN ALLERGY 02/06/18 03/19/23 mcg/actuation nasal spray,suspension (Flonase Allergy Relief) levocetirizine 5 mg tablet 5 mg PO BID Allergy symptoms 06/22/19 03/19/23 rosuvastatin 20 mg tablet 20 mg PO DAILY High Cholesterol 04/06/22 03/19/23 ubrogepant 100 mg tablet (Ubrelvy) 100 mg PO ONCE migraines 04/06/22 03/19/23 propranolol 10 mg tablet 10 mg PO BID High Blood Pressure 03/19/23 03/19/23 Previous Rx's Medication Instructions Recorded lisinopril 10 mg tablet 10 mg PO DAILY #30 tabs 03/19/23 Allergies Allergy/AdvReac Type Severity Reaction Status Date / Time No Known Allergies Allergy Verified 09/05/22 09:54 [facility] Disclaimer: The information contained in this section may have been updated after the patient was seen, as this information can be updated by other users. Medical History History of nephrolithotomy with removal of calculi Kidney stone Social History Smoking Status: Never smoker alcohol intake: never substance use type: denies use current occupational status: employed Travel in the last 8 weeks: None household members: spouse and family housing: house ROS Obtained: Yes All systems reviewed & no additional complaints except as documented Physical Exam General General appearance: alert Head Head exam: normocephalic Eye Eye exam: Present PERRL and EOMI; Absent nystagmus ENT ENT exam: Present normal oropharynx and mucous membranes moist Neck Neck exam: Present trachea midline Respiratory Respiratory exam: Present normal lung sounds bilaterally; Absent respiratory distress Cardiovascular Cardiovascular exam: Present regular rate Abdominal Exam Abdominal exam: Present soft Extremities Exam Extremities exam: Present full ROM Neurological Exam Neurological exam: Present alert, oriented X3 and CN II-XII intact; Absent motor sensory deficit Psychiatric Psychiatric exam: Present normal affect Skin Skin exam: Absent r
[2023-03-19 02:16] LABS: Microscopic, Urine URINE MICROSCOPIC (MICROSCOPIC)
[2023-03-19 02:17] LABS: Appearance,Urine CLEAR (Clear); Bilirubin,Urine Negative (Negative); Blood, Urine TRACE-I (Negative); Color,Urine YELLOW (Yellow); Glucose,Urine (UA) Negative (Negative); Ketones,Urine Negative (Negative); Leukocyte Esterase,Urine Negative (Negative); Nitrate,Urine Negative (Negative); PH,Urine 5.5 (5.0-8.5); Protein,Urine Negative (Negative); Urobilinogen,Urine 0.2 EU/dl (0.2)
[2023-03-19 02:19] LABS: Procalcitonin 0.073 ng/mL (0.0-2.0)
[2023-03-19 02:27] LABS: RBC,Urine Occasional #/hpf (0-3); Squamous Epithelial Cell,Urine Occasional #/hpf (0-5)
--- NOTE | 2023-03-19 02:49 | PC.NURSE ---
paged dr rajput @ this time
[2023-03-19 02:51] VITALS: BP 162/94; PULSE 81; RESP 16; TEMP 37.1; O2SAT 98
== END 2023-03-19 03:19 | disposition home or self-care (01) ==
PROVIDERS: Emergency Provider Emergency Medicine; PCP Internal Medicine Adolescent Medicine
DX: I16.0 Hypertensive urgency (principal); R42 Dizziness and giddiness; R61 Generalized hyperhidrosis
CPT/HCPCS: 71046; 80053; 81001; 84145; 84484; 85025; 85651; 86140; 93005; 96360; 99285

== ENCOUNTER 2023-03-22 19:36 | Emergency (ER) | payer OTHER, SELFPAY ==
[2023-03-22 19:39] VITALS: BP 157/102; PULSE 94; RESP 16; TEMP 37; O2SAT 99; BMI 43.4
--- NOTE | 2023-03-22 19:39 | ECG_ITS ---
APPROVED REPORT Exam: Resting ECG HR:101 bpm ECG Measurements Heart Rate 101 AXES WI 113 P 49 QRSd 92 QRS 55 QT 340 T 44 QTc 398 Conclusion SINUS TACHYCARDIA WITH SHORT WI INTERVAL NONSPECIFIC T-WAVE ABNORMALITY ABNORMAL RHYTHM ECG UNCONFIRMED REPORT Electronically signed by : Juan Maguire MD 03/23/2023 21:35:31
--- NOTE | 2023-03-22 19:46 | PC.NURSE ---
orders placed per md
[2023-03-22 19:51] LABS: Basophils % 0.3 % (0.1-2.0); Eosinophils # 0.2 K/mm3 (0.0-0.4); Eosinophils % 1.5 % (0.1-12.0); Hematocrit 45.4 % (42.0-52.0); Hemoglobin 14.8 g/dL (14.1-18.0); Lymphocytes # 2.8 K/mm3 (0.7-4.5); Lymphocytes % 27.5 % (10-50); Mean Corpuscular HGB Conc 32.6 g/dL (31.8-35.4); Mean Corpuscular Hemoglobin 28.7 pg (27.0-31.2); Mean Platelet Volume 8.3 fl (7.4-10.4); Monocytes # 0.5 K/mm3 (0.1-1.0); Monocytes % 4.7 % (1.7-9.3); Neutrophils # 6.7 K/mm3 (1.8-7.8); Neutrophils % 65.9 % (37.0-80.0); Platelet Count 289 K/mm3 (142-424); Red Blood Count 5.16 M/mm3 (4.60-6.20); Red Cell Distribution Width 13.6 % (11.5-17.5); White Blood Count 10.2 K/mm3 (4.8-10.8)
[2023-03-22 19:59] LABS: Chloride 102 mmol/L (98-107); Potassium 3.9 mmoL/L (3.5-5.1); Sodium 140 mmol/L (136-145)
[2023-03-22 20:00] VITALS: BP 138/89; PULSE 86; RESP 18; O2SAT 98
[2023-03-22 20:01] LABS: Blood Urea Nitrogen 11 mg/dl (9-20); Creatinine Clearance Estimated 109 mL/min (50-200); Estimated Glomerular Filt Rate 83 ml/min (>60); GFR (African American) 101 ML/MIN (>60)
[2023-03-22 20:02] LABS: Alanine Aminotransferase 37 U/L (12-78); Albumin Level 4.7 g/dl (3.5-5.0); Albumin/Globulin Ratio 1.3 (1.1-1.8); Alkaline Phosphatase 87 U/L (38-126); Anion Gap 16.9 mEq/L (5-15); Aspartate Amino Transferase 37 U/L (17-59); Bilirubin,Total 0.7 mg/dl (0.2-1.3); Carbon Dioxide 25 mmol/L (22.0-30.0); Globulin 3.7 g/dL (1.3-3.2); Glucose 98 mg/dl (74-100); Total Protein,Serum 8.4 g/dl (6.3-8.2)
[2023-03-22 20:16] LABS: Troponin I < 0.01 ng/ml (0.00-0.034)
--- NOTE | 2023-03-22 20:19 | HMH.EDCP ---
Discharge Plan Disposition Patient Disposition: Home, Self-Care Prescriptions Prescriptions: No Action fluticasone propionate [Flonase Allergy Relief] 50 mcg/actuation spray,suspension 1 spray INTRANASAL BID PRN (Reason: ALLERGY) rosuvastatin 20 mg tablet 20 mg PO DAILY Patient Comments: TAKE 1 TABLET BY MOUTH ONCE DAILY AT BEDTIME levocetirizine 5 mg tablet 5 mg PO DAILY lisinopril 10 mg tablet 10 mg PO DAILY Referrals Follow up/Referrals: Juan Maguire MD [Primary Care Provider] - See instructions Clinical Impressions Clinical Impression: Chest pain Discharge ED Provider: Abhijeet Lew Chest Pain HPI General Chief Complaint: Chest Pain Stated Complaint: chest pain Time Seen by Provider: 03/22/23 19:39 Mode of Arrival: Family Vehicle Source of Information: Patient Limitations: No Limitations Description of Symptoms (Recalled from ER Triage Doc. by RN): 38 yo male presents with recent onset of midsternal chest pain that radiates down into his left arm and through his left shoulder x 20 mins. Patient with PMH: hypertension, hyperlipidemia, seasonal allergies. States he wasn't doing anything particularly strenuous when the pain started. 10. Slight dyspnea. Denies n/v/d. Denies illness contact. Denies syncope. Afebrile. History of Present Illness HPI narrative: 38-year-old white male presents with chest pain that started within the half hour before he presentation presented to the hospital. He describes it as substernal radiating to his bicep and his back. He has been having blood pressure elevations and was recently started on lisinopril for his blood pressure. He reports his Apple Watch also alerted him that he may be in atrial fibrillation. No complaint of diaphoresis nausea vomiting dyspnea etc. Other than the blood pressure he has hypercholesterolemia and obesity. He has no known medical allergies. Related Data Home Medications Medication Instructions Recorded Confirmed fluticasone propionate 50 1 spray intranasal BID PRN ALLERGY 02/06/18 03/22/23 mcg/actuation nasal spray,suspension (Flonase Allergy Relief) rosuvastatin 20 mg tablet 20 mg PO DAILY High Cholesterol 04/06/22 03/22/23 levocetirizine 5 mg tablet 5 mg PO DAILY Allergy symptoms 03/21/23 03/22/23 lisinopril 10 mg tablet 10 mg PO DAILY htn 03/22/23 03/22/23 Allergies Allergy/AdvReac Type Severity Reaction Status Date / Time No Known Allergies Allergy Verified 03/21/23 13:29 [facility] Disclaimer: The information contained in this section may have been updated after the patient was seen, as this information can be updated by other users. Medical History Abnormal electrocardiogram [ECG] [EKG] Chest pain History of nephrolithotomy with removal of calculi Kidney stone Stenosis of carotid artery Social History Smoking Status: Never smoker alcohol intake: never substance use type: denies use current occupational status: employed Travel in the last 8 weeks: None household members: spouse and family housing: house ROS Obtained: Yes Systems reviewed as appropriate & no additional complaints except as documented Physical Exam General General appearance: alert and in no apparent distress Head Head exam: atraumatic and normocephalic Eye Eye exam: Present normal appearance and PERRL Neck Neck exam: Present normal inspection and full ROM Respiratory Respiratory exam: Present normal lung sounds bilaterally; Absent respiratory distress Cardiovascular Cardiovascular exam: Present normal rhythm and tachycardia Abdominal Exam Abdominal exam: Present soft; Absent tenderness Extremities Exam Extremities exam: Present normal inspection and full ROM Neurological Exam Neurological exam: Present alert, oriented X3 and CN II-XII intact Medical Decision Making Nas Inqui
[2023-03-22 20:30] VITALS: BP 135/88; PULSE 83; RESP 17; O2SAT 97
--- NOTE | 2023-03-22 21:01 | PC.NURSE ---
rounded on pt no needs at this time
[2023-03-22 21:13] LABS: D-Dimer 0.66 ug/mL (0.0-0.5)
--- NOTE | 2023-03-22 22:09 | PC.NURSE ---
pt has no request at this time
[2023-03-23 00:38] VITALS: BP 123/74; PULSE 69; PULSE 94; RESP 16; TEMP 37; O2SAT 98
[2023-03-23 01:28] LABS: Troponin I < 0.01 ng/ml (0.00-0.034)
== END 2023-03-22 23:49 | disposition home or self-care (01) ==
PROVIDERS: Family Medicine; Emergency Provider Emergency Medicine; PCP Internal Medicine Adolescent Medicine
DX: R07.9 Chest pain, unspecified (principal); M79.602 Pain in left arm; I10 Essential (primary) hypertension; E78.5 Hyperlipidemia, unspecified
CPT/HCPCS: 80053; 84484; 85025; 85378; 93005; 99284; 99285

== ENCOUNTER → 2023-03-29 08:43 | Outpatient (CLI) | payer OTHER, SELFPAY ==
--- NOTE | 2023-03-29 08:49 | CA_ITS ---
FINAL REPORT TECHNIQUE: Ultrasound images of the kidneys were obtained. Duplex Doppler of the renal arteries, RAR and RI also obtained. Spectral analysis was performed. CLINICAL HISTORY: HTN, Obesity COMPARISON: None FINDINGS: Aortic velocity is measured at 112. The right kidney measures 12.7 cm in length. No hydronephrosis, cortical thinning, or mass. RAR is 1.2. Peak systolic velocity is 141. RI is 0.65. No evidence of renal artery stenosis or chronic renal disease. The left kidney measures 12.9 cm in length. No hydronephrosis, cortical thinning, or mass. RAR is 1.0. Peak systolic velocity is 117. RI is 0.72. No evidence of renal artery stenosis or chronic renal disease. IMPRESSION: Normal renal ultrasound. Normal RI bilaterally. Reviewed, Interpreted and Dictated by Harriett Lanza MD Transcribed by Arlin Irene Authenticated and [facility]
--- NOTE | 2023-03-29 09:15 | US_ITS ---
FINAL REPORT TECHNIQUE: Ultrasound images of the kidneys and bladder were obtained. CLINICAL HISTORY: I16.0 - Hypertensive urgency FINDINGS: The right kidney measures 11.7 cm in length. There is no hydronephrosis. There are several echogenic foci, likely small stones. No mass is identified. The left kidney measures 12.1 cm in length. There is no hydronephrosis. There are probable stones. No mass is identified. Limited evaluation of the liver reveals fatty liver. The urinary bladder is unremarkable. IMPRESSION: Bilateral nephrolithiasis. Fatty liver. Reviewed, Interpreted and Dictated by Harriett Lanza MD Transcribed by Samantha Garcia Authenticated and [facility]
== END ==
LOC: RT 08:43
PROVIDERS: PCP Internal Medicine Adolescent Medicine; Visit Provider Physician Assistant
DX: R07.9 Chest pain, unspecified (principal); I16.0 Hypertensive urgency; I65.29 Occlusion and stenosis of unspecified carotid artery; R94.31 Abnormal electrocardiogram [ECG] [EKG]
CPT/HCPCS: 76770; 93976

== ENCOUNTER → 2023-04-03 06:40 | Outpatient (CLI) | payer OTHER, SELFPAY ==
--- NOTE | 2023-04-03 | CA_ITS ---
APPROVED REPORT Exam: Exercise Treadmill Technologist: Юлия Escobar, Ht: 5 ft 3 in Wt: 322 lbs BSA: 2.37 m2 HR: 81 bpm BP: 115/75 mmHg Rhythm: SR Medical History Medical History: HTN, Hyperlipidemia Medications: Lisinopril,,,,, Flonase,,,,, Levocetirizine,,,,, RoSUVASTATIN,,,,, UBrogepant,,,,, Propranolol ER,,,,, Allergies: No known drug allergies Cardiac Risk Factors: HTN, Hyperlipidemia Stress Test Details Test: Jesus HR Resting HR: 90 bpm Max Heart Rate (APMHR): 181 bpm Max HR Achieved: 167 bpm Target HR (85% APMHR): 154 bpm % of APMHR: 92 Recovery HR: 108 bpm HR response to stress: Normal HR response to stress BP Resting BP: 115.0/75 mmHg Max BP: 160/78 mmHg Recovery BP: 114.0/71.0 mmHg BP response to stress: Normal blood pressure response to stress. ECG Resting ECG: NSR, T-wave changes in inferior leads Stress EC mm upsloping ST depression Arrhythmia: Occasional PVCs Recovery ECG: Return to baseline within 3 minutes of recovery Recovery Arrhythmia: None Clinical Exercise duration: 07:18 min Highest Stage Achieved: Exercise capacity: 10.1 METs Overall Exercise Capacity for Age: Average Stress ECG Conclusion Patient exercised for a total of 7 minutes, 18 seconds. He achieved a total of 10.1 METS. He has an average exercise capacity compared to age and sex matched peers. He has normal HR and BP response to exercise. MAX HR: 167 % OF PM: 92 MAX BP: 160/78 METS: 10.1 TEST STOPPED DUE TO: LEG FATIGUE PT HAD LEG FATIGUE AND DYSPNEA PVCS [address] DEPRESSION AT PEAK STRESS CONCLUSION NON-DIAGNOSTIC ECG STRESS TEST DUE TO BASELINE ABNORMALITIES MYOVIEW IMAGES ARE REPORTED SEPARATELY Test Summary REST . . . . . . . Standing REST . . . . . . . Sitting REST 03:56 0.0 0.0 90 . 115/ 75 . . Stage 1 01:00 10.0 1.7 112 . . . . Stage 1 02:00 10.0 1.7 129 . . . . Stage 1 03:00 10.0 1.7 132 . 140/ 73 . . Stage 2 01:00 12.0 2.5 142 . . . . Stage 2 02:00 12.0 2.5 154 . . . . Stage 2 03:00 12.0 2.5 159 . 160/ 78 . . Stage 3 . . . . . . . Myoview Injected Stage 3 01:00 14.0 3.4 163 . . . . Stage 3 01:18 14.0 3.4 166 . . . Stop exercise at 07:18 RECOVERY 01:00 0.0 0.0 141 . 158/ 82 . . RECOVERY 02:00 0.0 0.0 116 . 158/ 82 . . RECOVERY 03:00 0.0 0.0 111 . 127/ 76 . . RECOVERY 04:00 0.0 0.0 109 . 104/ 74 . . RECOVERY 04:33 0.0 0.0 110 . 114/ 71 . . Electronically signed by : Cindy Smith, 04/03/2023 12:53:05
--- NOTE | 2023-04-03 06:44 | NM_ITS ---
APPROVED REPORT Exam: Nuclear Stress Test Indication: chest pain..soa..palpitations Patient Location: Outpatient Stress Tech: Юлия Escobar [place] Tech:Karyn Manley HUEY RT(R)(N) Ht: 6 ft 0 in Wt: 315 lbs HR: 90 bpm BP: 115/75 mmHg BSA: 2.58 m2 Rhythm: NSR TID: 1.16 History: chest pain..soa..palpitations Procedure: Patient exercised on Jesus protocol 7:18 minutes and sec, resting heart rate 90 bpm, resting blood pressure 115/75 mmHg, with exercise maximum heart rate achived was 167 bpm which is 92 % of the maximum predicted heart rate and blood pressure was 160/78 mmHg. Test was stopped due to burning in legs. Patient denied any complaint of chest pain. Patient has Average exercise capacity, achieved 10.1 METs of workload on treadmill, the blood pressure response to exercise was Normal. Cardiac Stress and Resting SPECT Images: Cardiac Stress and Resting SPECT images were obtained using technetium 99m Myoview 31.0 mCi stress and 10.63 mCi at rest. This is a technically difficult study due to body habitus and overlying soft tissues overlapping with the cardiac borders. This may affect the diagnostic interpretation of the study findings. Resting and stress perfusion imaging in supine position demonstrate a medium sized, moderate, fixed perfusion defect in the inferior LV wall. It is no longer visualized in prone stress positioning. This is most suggestive of diaphragmatic attenuation. Gated imaging demonstrates low normal global and regional LV systolic function. LVEF is calculated at 51%. Conclusion: This is a technically difficult study due to body habitus and overlying soft tissues overlapping with the cardiac borders. This may affect the diagnostic interpretation of the study findings. Diaphragmatic attenuation is present. No definite fixed or reversible perfusion defects Gated imaging demonstrates low normal global and regional LV systolic function. LVEF is calculated at 51%. Electronically signed by : Cindy Smith, 04/03/2023 12:58:40
== END ==
LOC: RAD 06:40
PROVIDERS: PCP Internal Medicine Adolescent Medicine; Visit Provider Physician Assistant
DX: R07.9 Chest pain, unspecified (principal); I16.0 Hypertensive urgency; I65.29 Occlusion and stenosis of unspecified carotid artery; R94.31 Abnormal electrocardiogram [ECG] [EKG]
CPT/HCPCS: 78452; 93017; 93306; A9502

== ENCOUNTER → 2023-04-14 08:06 | Outpatient (CLI) | payer OTHER, SELFPAY ==
[2023-04-14 08:22] LABS: Basophils % 0.4 % (0.1-2.0); Eosinophils # 0.2 K/mm3 (0.0-0.4); Eosinophils % 2.6 % (0.1-12.0); Hematocrit 45.8 % (42.0-52.0); Hemoglobin 14.7 g/dL (14.1-18.0); Lymphocytes # 1.9 K/mm3 (0.7-4.5); Lymphocytes % 25.7 % (10-50); Mean Corpuscular Hemoglobin 28.2 pg (27.0-31.2); Mean Corpuscular Volume 88.2 fl (80-94); Mean Platelet Volume 8.8 fl (7.4-10.4); Monocytes # 0.5 K/mm3 (0.1-1.0); Monocytes % 6.1 % (1.7-9.3); Neutrophils # 4.9 K/mm3 (1.8-7.8); Neutrophils % 65.2 % (37.0-80.0); Platelet Count 277 K/mm3 (142-424); Red Cell Distribution Width 13.8 % (11.5-17.5); White Blood Count 7.5 K/mm3 (4.8-10.8)
[2023-04-14 08:49] LABS: Chloride 104 mmol/L (98-107); Potassium 4.2 mmoL/L (3.5-5.1); Sodium 141 mmol/L (136-145)
[2023-04-14 08:52] LABS: Alanine Aminotransferase 33 U/L (12-78); Albumin Level 4.4 g/dl (3.5-5.0); Albumin/Globulin Ratio 1.6 (1.1-1.8); Alkaline Phosphatase 77 U/L (38-126); Anion Gap 13.2 mEq/L (5-15); Aspartate Amino Transferase 25 U/L (17-59); Bilirubin,Total 0.5 mg/dl (0.2-1.3); Blood Urea Nitrogen 11 mg/dl (9-20); Carbon Dioxide 28 mmol/L (22.0-30.0); Cholesterol 94 mg/dl (140-200); Estimated Glomerular Filt Rate 83 ml/min (>60); GFR (African American) 101 ML/MIN (>60); Globulin 2.8 g/dL (1.3-3.2); Total Protein,Serum 7.2 g/dl (6.3-8.2); Triglycerides 161 mg/dl (30-150); VLDL Cholesterol 32 mg/dL (0-40)
[2023-04-14 08:53] LABS: Calcium 9.7 mg/dl (8.4-10.2); Chol/HDL Ratio 3.5 (1-3.5); Glucose 99 mg/dl (74-100); HDL Cholesterol 27 mg/dl (40-60)
[2023-04-14 09:04] LABS: Direct LDL Cholesterol 42.64 mg/dL (100-129)
[2023-04-14 09:23] LABS: Hemoglobin A1C 5.5 % (4.0-6.0); Thyroid Stimulating Hormone 1.58 uIU/mL (0.465-4.68)
[2023-04-14 09:44] LABS: Vitamin B12 343 pg/mL (239-931)
== END ==
LOC: LAB 08:08
PROVIDERS: PCP Nurse Practitioner Family; Visit Provider Nurse Practitioner Family
DX: R53.81 Other malaise (principal); I10 Essential (primary) hypertension; I65.23 Occlusion and stenosis of bilateral carotid arteries
CPT/HCPCS: 36415; 80053; 80061; 82607; 83036; 84443; 85025

== ENCOUNTER → 2023-04-27 15:17 | Outpatient (CLI) | payer OTHER, SELFPAY | PROVIDERS: PCP Nurse Practitioner Family; Visit Provider Nurse Practitioner Family | DX: G47.30 Sleep apnea, unspecified (principal); R06.83 Snoring | CPT/HCPCS: 95806 ==

== ENCOUNTER → 2023-07-13 10:15 | Outpatient (CLI) | payer OTHER, SELFPAY ==
[2023-07-13 11:24] LABS: Anion Gap 16.6 mEq/L (5-15); Blood Urea Nitrogen 12 mg/dl (9-20); Calcium 9.7 mg/dl (8.4-10.2); Carbon Dioxide 28 mmol/L (22.0-30.0); Chloride 99 mmol/L (98-107); Estimated Glomerular Filt Rate 83 ml/min (>60); GFR (African American) 101 ML/MIN (>60); Glucose 93 mg/dl (74-100); Potassium 4.6 mmoL/L (3.5-5.1); Sodium 139 mmol/L (136-145)
== END ==
LOC: LAB 10:16
PROVIDERS: PCP Internal Medicine Adolescent Medicine; Visit Provider Internal Medicine
DX: I65.29 Occlusion and stenosis of unspecified carotid artery (principal); R94.31 Abnormal electrocardiogram [ECG] [EKG]
CPT/HCPCS: 36415; 80048

== ENCOUNTER 2023-08-03 05:59 | Emergency (ER) | payer OTHER, SELFPAY ==
[2023-08-03 06:00] VITALS: BP 155/102; PULSE 60; RESP 16; TEMP 36.6; O2SAT 99; BMI 42.7
--- NOTE | 2023-08-03 06:23 | CT_ITS ---
PROCEDURE INFORMATION: Exam: CT Abdomen And Pelvis Without Contrast Exam date and time: 08/03/2023 6:38 AM Age: 38 years old Clinical indication: Abdominal pain; Generalized; Additional info: Concern for stone TECHNIQUE: Imaging protocol: Computed tomography of the abdomen and pelvis without contrast. Radiation optimization: All CT scans at this facility use at least one of these dose optimization techniques: automated exposure control; mA and/or kV adjustment per patient size (includes targeted exams where dose is matched to clinical indication); or iterative reconstruction. REPORTING DATA: Count of CT and Cardiac NM exams in prior 12 months: This patient has received 0 known CTs and 0 known cardiac nuclear medicine studies in the 12 months prior to the current study. COMPARISON: CT ABDOMEN PELVIS WO CON 12/30/2019 9:15 AM FINDINGS: Liver: Normal. No mass. Gallbladder and bile ducts: Normal. No calcified stones. No ductal dilation. Pancreas: Normal. No ductal dilation. Spleen: Normal. No splenomegaly. Adrenal glands: Normal. No mass. Kidneys and ureters: 5.8 millimeter proximal RIGHT ureteral calculus causes dilatation of the RIGHT ureter, and RIGHT collecting system. The RIGHT kidney is edematous and there is RIGHT perirenal stranding. Multiple nonobstructing renal calculi. 2 cm simple cyst lower pole right kidney Stomach and bowel: Unremarkable. No obstruction. No mucosal thickening. Appendix: No evidence of appendicitis. Intraperitoneal space: Unremarkable. No free air. No significant fluid collection. Vasculature: Unremarkable. No abdominal aortic aneurysm. Lymph nodes: Unremarkable. No enlarged lymph nodes. Urinary bladder: Unremarkable as visualized. Reproductive: Unremarkable as visualized. Bones/joints: Unremarkable. No acute fracture. Soft tissues: Unremarkable. IMPRESSION: 5.8 millimeter proximal RIGHT ureteral calculus causes dilatation of the RIGHT ureter, and RIGHT collecting system. The RIGHT kidney is edematous and there is RIGHT perirenal stranding. COMMENTS: Consistent with the [place] [employer]'s Incidental Findings Committee white paper (J Am Rios Radiol 2018): Any incidental renal lesion less than 1 cm or classified as too small to characterize, or any incidental cystic renal lesion characterized as simple-appearing, is likely benign. No follow-up imaging is recommended for these lesions per consensus recommendations based on imaging criteria.
[2023-08-03 06:29] LABS: Microscopic, Urine URINE MICROSCOPIC (MICROSCOPIC)
[2023-08-03 06:30] VITALS: PULSE 70; O2SAT 99
--- NOTE | 2023-08-03 06:36 | HMH.EDGENADL ---
Discharge Plan Disposition Patient Disposition: Home, Self-Care Prescriptions Prescriptions: New tamsulosin [Flomax] 0.4 mg capsule 0.4 mg PO DAILY Qty: 7 0RF ketorolac 10 mg tablet 10 mg PO Q8H 5 Days Qty: 15 0RF No Action fluticasone propionate [Flonase Allergy Relief] 50 mcg/actuation spray,suspension 1 spray INTRANASAL BID PRN (Reason: ALLERGY) Ubrelvy 100 mg tablet 100 mg PO ONCE PRN Patient Comments: TAKE 1 TABLET BY MOUTH NEEDED FOR MIGRAINE HEADACHE rosuvastatin 20 mg tablet 20 mg PO DAILY Patient Comments: TAKE 1 TABLET BY MOUTH ONCE DAILY AT BEDTIME propranolol 60 mg capsule,extended release 24 hr 60 mg PO HS Qty: 90 3RF lisinopril 10 mg tablet 10 mg PO DAILY Qty: 90 3RF levocetirizine 5 mg tablet 5 mg PO DAILY Referrals Follow up/Referrals: Juan Maguire MD [Primary Care Provider] - See instructions Activity Restrictions/Add. Instructions Additional Instructions/Restrictions: Call your family doctor to establish care for this visit to the emergency department and schedule follow-up within 48 hours to ensure improvement. If you have any worsening of your condition or any other concerning signs or symptoms, return to the emergency department or your primary care doctor for further evaluation. Clinical Impressions Clinical Impression: Calcium ureterolithiasis Instructions Patient Instructions: DI for Acute Abdominal Pain Discharge ED Provider: Darren Martinez General Adult HPI General Chief complaint: Abdominal Pain Stated complaint: right side back pain, nausea, vomiting Time Seen by Provider: 08/03/23 06:06 Mode of Arrival: Ambulatory Source of Information: Patient Limitations: No Limitations Description of Symptoms (Recalled from ER Triage Doc. by RN): Pt reports woke up with right flank pain that radiates into his right groin, reports difficulty urinating, and nausea and vomiting with cold sweats History of Present Illness HPI narrative: 38-year-old male history of kidney stones, hypertension presenting with flank pain. Started around 3 AM today, 08/03. Right flank pain, radiates downward into his groin. Associated with severe, stabbing pain, vomiting, cold chills. Denies any objective fever. Able to urinate with difficulty, no obvious hematuria. Related Data Home Medications Medication Instructions Recorded Confirmed fluticasone propionate 50 1 spray intranasal BID PRN ALLERGY 02/06/18 07/13/23 mcg/actuation nasal spray,suspension (Flonase Allergy Relief) rosuvastatin 20 mg tablet 20 mg PO DAILY High Cholesterol 04/06/22 07/13/23 levocetirizine 5 mg tablet 5 mg PO DAILY Allergy symptoms 03/21/23 07/13/23 ubrogepant 100 mg tablet (Ubrelvy) 100 mg PO ONCE PRN 07/13/23 07/13/23 Previous Rx's Medication Instructions Recorded lisinopril 10 mg tablet 10 mg PO DAILY htn #90 tabs 04/12/23 propranolol 60 mg capsule,24 60 mg PO HS #90 caps 04/12/23 hr,extended release ketorolac 10 mg tablet 10 mg PO Q8H 5 days #15 tabs 08/03/23 tamsulosin 0.4 mg capsule (Flomax) 0.4 mg PO DAILY #7 caps 08/03/23 Allergies Allergy/AdvReac Type Severity Reaction Status Date / Time No Known Allergies Allergy Verified 07/13/23 09:51 [facility] Disclaimer: The information contained in this section may have been updated after the patient was seen, as this information can be updated by other users. Medical History Abnormal electrocardiogram [ECG] [EKG] Chest pain History of nephrolithotomy with removal of calculi Kidney stone Stenosis of carotid artery Social History Smoking Status: Never smoker alcohol intake: never substance use type: denies use current occupational status: employed Travel in the last 8 weeks: None household members: spouse and family housing: house ROS Obtained: Yes All systems revie
[2023-08-03 06:38] LABS: Alanine Aminotransferase 36 U/L (12-78); Alkaline Phosphatase 83 U/L (38-126); Aspartate Amino Transferase 35 U/L (17-59); Bilirubin,Total 0.6 mg/dl (0.2-1.3); Blood Urea Nitrogen 17 mg/dl (9-20); Calcium 8.9 mg/dl (8.4-10.2); Carbon Dioxide 26 mmol/L (22.0-30.0); Chloride 100 mmol/L (98-107); Creatinine Clearance Estimated 84 mL/min (50-200); Estimated Glomerular Filt Rate 61 ml/min (>60); GFR (African American) 74 ML/MIN (>60); Glucose 159 mg/dl (74-100); Lipase 311 U/L (23-300)
[2023-08-03 06:39] LABS: Total Protein,Serum 8.1 g/dl (6.3-8.2)
[2023-08-03 06:45] VITALS: PULSE 65; O2SAT 97
[2023-08-03 06:48] VITALS: BP 139/94; PULSE 77; O2SAT 98
[2023-08-03 06:49] LABS: Basophils % 0.3 % (0.1-2.0); Eosinophils # 0.2 K/mm3 (0.0-0.4); Hemoglobin 15.1 g/dL (14.1-18.0); Lymphocytes # 1.8 K/mm3 (0.7-4.5); Lymphocytes % 16.7 % (10-50); Mean Corpuscular HGB Conc 32.1 g/dL (31.8-35.4); Mean Corpuscular Volume 93.2 fl (80-94); Mean Platelet Volume 8.8 fl (7.4-10.4); Monocytes # 0.5 K/mm3 (0.1-1.0); Monocytes % 4.9 % (1.7-9.3); Platelet Count 304 K/mm3 (142-424); Red Blood Count 5.04 M/mm3 (4.60-6.20); Red Cell Distribution Width 13.6 % (11.5-17.5); White Blood Count 10.5 K/mm3 (4.8-10.8)
[2023-08-03 06:51] LABS: Albumin Level 4.8 g/dl (3.5-5.0); Albumin/Globulin Ratio 1.5 (1.1-1.8); Anion Gap 13.3 mEq/L (5-15); Globulin 3.3 g/dL (1.3-3.2); Potassium 4.3 mmoL/L (3.5-5.1); Sodium 135 mmol/L (136-145)
[2023-08-03 06:56] LABS: Appearance,Urine CLEAR (Clear); Bilirubin,Urine Negative (Negative); Blood, Urine 2+ (Negative); Color,Urine YELLOW (Yellow); Glucose,Urine (UA) Negative (Negative); Ketones,Urine Negative (Negative); Leukocyte Esterase,Urine Negative (Negative); Nitrate,Urine Negative (Negative); PH,Urine 5.5 (5.0-8.5); Protein,Urine Negative (Negative); Specific Gravity, Urine 1.025 (1.005-1.030); Urobilinogen,Urine 0.2 EU/dl (0.2)
[2023-08-03 07:12] LABS: Bacteria,Urine Trace /lpf; Squamous Epithelial Cell,Urine Occasional #/hpf (0-5); WBC,Urine Occasional #/hpf (0-3)
[2023-08-03 07:45] VITALS: BP 126/80; PULSE 68; RESP 16; TEMP 36.6; O2SAT 100
== END 2023-08-03 07:45 | disposition home or self-care (01) ==
PROVIDERS: Emergency Provider Emergency Medicine; PCP Internal Medicine Adolescent Medicine
DX: R10.9 Unspecified abdominal pain (principal); R11.10 Vomiting, unspecified; I10 Essential (primary) hypertension
CPT/HCPCS: 74176; 80053; 81001; 83690; 85025; 96361; 96374; 96375; 99285; J2405

== ENCOUNTER → 2023-08-21 10:26 | Outpatient (CLI) | payer OTHER, SELFPAY ==
[2023-09-19 10:25] LABS: Miscellaneous Test SCANNED IMAGE
== END ==
LOC: LAB.DROPOF 09-22 10:27
PROVIDERS: PCP Urology; Visit Provider Urology
DX: N20.0 Calculus of kidney (principal)
CPT/HCPCS: 82370

== ENCOUNTER → 2023-09-08 08:47 | Outpatient (CLI) | payer OTHER, SELFPAY ==
[2023-09-08 18:04] LABS: Coronavirus 19, PCR Not Detected (NotDetected); Influenza A, PCR Not Detected (NotDetected); Influenza B, PCR Not Detected (NotDetected)
== END ==
LOC: LAB.DROPOF 09-09 08:48
PROVIDERS: PCP Internal Medicine Adolescent Medicine; Visit Provider Family Medicine
DX: R05.9 Cough, unspecified (principal)
CPT/HCPCS: 87636

== ENCOUNTER 2024-01-08 15:13 | Outpatient (CLI) | payer OTHER, SELFPAY | END 2024-01-08 23:59 | disposition home or self-care (01) | LOC: LAB.DROPOF 01-10 15:14 | PROVIDERS: PCP Student in an Organized Health Care Education/Training Program; Visit Provider Student in an Organized Health Care Education/Training Program | DX: J02.9 Acute pharyngitis, unspecified (principal); B95.4 Other streptococcus as the cause of diseases classified elsewhere | CPT/HCPCS: 87070 ==

== ENCOUNTER 2025-01-14 08:28 | Outpatient (CLI) | payer OTHER, SELFPAY ==
--- NOTE | 2025-01-14 08:45 | CA_ITS ---
FINAL REPORT TECHNIQUE: [place]rbina scale, color and spectral doppler images of the bilateral carotid arteries were obtained. CLINICAL HISTORY: EVENS, HTN, HLD, hx migraines FINDINGS: Peak systolic velocity in the right internal carotid artery is 117 cm/sec. The internal carotid to common carotid artery ratio is 76. The ICA/CCA ratio is 1.0. The ICA/CCA ratio is 0.82. There is no significant carotid artery stenosis and no significant plaque formation. The right vertebral artery is normal in direction. Peak systolic velocity in the left internal carotid artery is 105 cm/sec. The internal carotid to common carotid artery ratio is 70. There is no significant carotid artery stenosis and no significant plaque formation. The left vertebral artery is normal in direction. IMPRESSION: Less than 50% stenosis bilaterally Reviewed, Interpreted and Dictated by Harriett Lanaz MD Transcribed by Samantha Garcia Authenticated and . [facility]
== END 2025-01-14 23:59 | disposition home or self-care (01) ==
LOC: RT 08:28
PROVIDERS: PCP Internal Medicine Adolescent Medicine; Visit Provider Physician Assistant
DX: I65.23 Occlusion and stenosis of bilateral carotid arteries (principal); I10 Essential (primary) hypertension; E78.5 Hyperlipidemia, unspecified
CPT/HCPCS: 93880

== ENCOUNTER 2025-01-19 19:54 | Emergency (ER) | payer OTHER, SELFPAY ==
--- NOTE | 2025-01-19 19:56 | HMH.EDGENADL ---
Discharge Plan Disposition Patient Disposition: Home, Self-Care Condition: Good Prescriptions Prescriptions: New tamsulosin 0.4 mg capsule 0.4 mg PO HS Qty: 30 0RF ondansetron 4 mg tablet,disintegrating 4 mg PO QID PRN (Reason: nausea and vomiting) Qty: 10 0RF ketorolac 10 mg tablet 10 mg PO Q8H PRN (Reason: pain) 2 Days Qty: 10 0RF No Action fluticasone propionate [Flonase Allergy Relief] 50 mcg/actuation spray,suspension 1 spray INTRANASAL BID PRN (Reason: ALLERGY) Ubrelvy 100 mg tablet 100 mg PO ONCE PRN Patient Comments: TAKE 1 TABLET BY MOUTH NEEDED FOR MIGRAINE HEADACHE rosuvastatin 20 mg tablet 20 mg PO DAILY Patient Comments: TAKE 1 TABLET BY MOUTH ONCE DAILY AT BEDTIME tamsulosin [Flomax] 0.4 mg capsule 0.4 mg PO DAILY PRN propranolol 60 mg capsule,extended release 24 hr 60 mg PO HS Qty: 90 3RF lisinopril 10 mg tablet 10 mg PO DAILY Qty: 90 3RF levocetirizine 5 mg tablet 5 mg PO DAILY Referrals Follow up/Referrals: Qasim Cordova MD [Referring] - See instructions Juan Maguire MD [Primary Care Provider] - See instructions Activity Restrictions/Add. Instructions Additional Instructions/Restrictions: As we discussed I have sent in Toradol Zofran and tamsulosin to your pharmacy. I have also referred you to urology in [place]. Please call tomorrow to make your appointment. If you have any continued new or worsening signs or symptoms follow-up with your PCP return to the ER as needed. Clinical Impressions Clinical Impression: Ureterolithiasis Instructions Patient Instructions: DI for Acute Abdominal Pain Print Language Print Language: Ghanaian Discharge ED Provider: Darren Martinez General Adult HPI <YI Pryor - Last Filed: 01/19/25 21:04> General Chief complaint: Abdominal Pain Stated complaint: Sharp pain groin area,pressure Time Seen by Provider: 01/19/25 19:56 History of Present Illness HPI narrative: Patient presents for evaluation of left flank pain radiating to his groin. Patient has a known history of kidney stones and last had an obstructing stone 2 years ago. Symptoms began 2 days ago with left flank pain that initially went away but came back around 3 AM is been persistent since. Patient denies fever chills shortness of breath hemoptysis hematochezia melena hematemesis hematuria vomiting or diarrhea but endorses nausea. Related Data Home Medications ?Medication ?Instructions ?Recorded ?Confirmed fluticasone propionate 50 1 spray intranasal BID PRN ALLERGY 02/06/18 01/09/25 mcg/actuation nasal spray,suspension (Flonase Allergy Relief) rosuvastatin 20 mg tablet 20 mg PO DAILY High Cholesterol 04/06/22 01/09/25 levocetirizine 5 mg tablet 5 mg PO DAILY Allergy symptoms 03/21/23 01/09/25 ubrogepant 100 mg tablet (Ubrelvy) 100 mg PO ONCE PRN 07/13/23 01/09/25 tamsulosin 0.4 mg capsule (Flomax) 0.4 mg PO DAILY PRN 01/09/25 Previous Rx's ?Medication ?Instructions ?Recorded lisinopril 10 mg tablet 10 mg PO DAILY htn #90 tabs 04/05/24 propranolol 60 mg capsule,24 60 mg PO HS #90 caps 04/05/24 hr,extended release ketorolac 10 mg tablet 10 mg PO Q8H PRN pain 2 days #10 01/19/25 tabs ondansetron 4 mg disintegrating 4 mg PO QID PRN nausea and 01/19/25 tablet vomiting #10 tabs tamsulosin 0.4 mg capsule 0.4 mg PO HS #30 caps 01/19/25 Allergies Allergy/AdvReac Type Severity Reaction Status Date / Time No Known Allergies Allergy Verified 01/09/25 09:45 [facility] <YI Pryor - Last Filed: 01/19/25 21:04> [facility] Disclaimer: The information contained in this section may have been updated after the patient was seen, as this information can be updated by other users. Medical History (Updated 01/19/25 @ 21:04 by YI Pryor) Obesity Viral respiratory illness Calcium ureterolithiasis Chest pain Stenosis of carotid artery Abnormal electrocardiogram [ECG] [EKG] Chest pain Hypertensive urgency Kidney stone History of nephrolithotomy with removal of calculi Gastroenteritis Vasovagal near syncope Exposure to COVID-19 virus Encounter for laboratory testing for COVID-19 virus Stones, urinary tract Low back pain Surgical History No significant past surgical history Family History Other No significant family history Social History Smoking Status: Never smoker alcohol intake: never substance use type: denies use current occupational status: employed Travel in the last 8 weeks?: None household members: spouse and family housing: house Have you lived/traveled outside US in past 30 days?: No Contact w/someone who lives/traveled outside US past 30 days?: No Exposure to someone with infectious disease in past 14 days?: No Do you have a fever (greater than 100.4 F or 38 C)?: No Have you tested positive for COVID-19?: No Exposed to someone with COVID-19 in past 14 days?: No Do you have a sore throat?: No Do you have a cough?: No Do you have any weakness?: No Do you have any diarrhea?: No Are you experiencing any unusual bleeding?: No Do you have any muscle aches/pain?: No Do you have any abdominal pain?: Yes Are you experiencing loss of taste or smell?: No Other Medical History Have you received the Flu Vaccine for this season: No Have you received the Pneumonia Vaccine: Yes <YI Pryor - Last Filed: 01/19/25 21:04> ROS Obtained: Yes Systems reviewed as appropriate & no additional complaints except as documented Physical Exam <YI Pryor - Last Filed: 01/19/25 21:04> General General appearance: alert and in no apparent distress Respiratory Respiratory exam: Present normal lung sounds bilaterally Cardiovascular Cardiovascular exam: Present regular rate Neurological Exam Neurological exam: Present alert and oriented X3 Medical Decision Making <YI Pryor - Last Filed: 01/19/25 21:04> Medical Records Medical records reviewed: Yes I reviewed the patient's medical records. Screening: Per USPSTF and CDC recommendations, given the prevalence of disease in our region, it is our hospital?s policy to screen for HIV and viral Hepatitis for all patients aged 18 and over and those with ongoing risk factors. Nas Inquiry Pt receiving controlled substance: No Vital Signs: 01/19/25 20:03 01/19/25 21:16 Temperature 98.5 F 98.4 F Temperature Source Oral Pulse Rate 71 Pulse Rate [Radial] 63 Respiratory Rate 16 22 Blood Pressure 115/72 Blood Pressure [Right Arm] 149/91 H Blood Pressure Mean [Right Arm] 110 Blood Pressure Position [Right Arm] Sitting 02 Sat by Pulse Oximetry 98 Oxygen Delivery Method Room Air Room Air Lab Data Lab results reviewed: Yes I reviewed the patient's lab results. Lab Results 01/19/25 19:59: Urine Color Yellow, Urine Appearance Slightly cloudy, Urine pH 6.0, Ur Specific [place] 1.025, Urine Protein Negative, Urine Glucose (UA) Negative, Urine Ketones Negative, Urine Blood 3+ A, Urine Nitrate Negative, Urine Bilirubin Negative, Urine Urobilinogen 0.2, Ur Leukocyte Esterase Negative, Urine RBC 20-50, Urine WBC 3-5, Ur Squamous Epith Cells Occasional, Urine Bacteria Trace 01/19/25 20:05: WBC 10.8, RBC 4.90, Hgb 14.3, Hct 44.0, MCV 89.8, MCH 29.2, MCHC 32.5, RDW 13.3, Plt Count 339, MPV 10.3, Neut % (Auto) 66.1, Lymph % (Auto) 23.2, Haskell % (Auto) 7.6, Eos % (Auto) 2.3, Baso % (Auto) 0.5, Neut # (Auto) 7.2, Lymph # (Auto) 2.5, [place] # (Auto) 0.8, Eos # (Auto) 0.3, Baso # (Auto) 0.1, Sodium 139, Potassium 4.2, Chloride 104, Carbon Dioxide 29, Anion Gap 10.2, BUN 13, Creatinine 1.20, Estimated Creat Clear 89, Estimated GFR 67, Est GFR ( Amer) 81, Glucose 113 H, Calcium 9.4, Total Bilirubin 0.4, AST 36, ALT 38, Alkaline Phosphatase 59, Total Protein 7.7, Albumin 4.6, Globulin 3.1, Albumin/Globulin Ratio 1.5 01/19/25 20:05 01/19/25 20:05 Orders (Tests/Meds): ED MEDICATIONS Discontinued Medications Generic Name Dose Route Start Last Admin Trade Name Freq PRN Reason Stop Dose Admin Acetaminophen 1,000 mg 01/19/25 20:06 01/19/25 20:17 Acetaminophen 500mg Tab PO 01/19/25 20:07 1,000 mg ONCE ONE Administration Sodium Chloride 1,000 mls @ 999 mls/hr 01/19/25 20:06 01/19/25 20:16 Sod Chlor 0.9% 1000ml Bag IV 01/19/25 21:06 999 mls/hr .Q1H1M ONE Administration Iopamidol 75 ml 01/19/25 20:30 01/19/25 20:31 Iopamidol-370 (76%);100ml Bottle IV 01/19/25 20:31 75 ml ONCE ONE Administration Ketorolac Tromethamine 15 mg 01/19/25 20:06 01/19/25 20:16 Ketorolac 30mg/Ml Vial IV 01/19/25 20:07 15 mg ONCE ONE Administration Ondansetron HCl 4 mg 01/19/25 20:06 01/19/25 20:16 Ondansetron 4mg/2ml Vial IV 01/19/25 20:07 4 mg ONCE ONE Administration Sodium Chloride 10 ml 01/19/25 20:30 01/19/25 20:31 Sodium Chloride 0.9% 10ml Syr (Rad Only) IV 01/19/25 20:31 10 ml ONCE ONE Administration ORDERS Category Date Time Status CT abdomen pelvis w con Stat Cat Scan 01/19/25 20:08 Taken CBC w/Auto Diff [Complete Blood Count Auto Diff] Stat Lab 01/19/25 20:05 Completed CMP [Comprehensive Metabolic Panel] Stat Lab 01/19/25 20:05 Completed UA [Urinalysis and Microscopic] Stat Lab 01/19/25 19:59 Completed Medical Decision Narrative: In summary patient is a 40-year-old male who presents to the emergency department for evaluation of left flank pain. Patient is hemodynamically stable upon arrival, afebrile with normal sinus rhythm on the bedside monitor with a rate of 63. Physical exam is remarkable for CVA tenderness to percussion of the left negative on the right, abdomen soft with no rebound or guarding or rigidity with normal bowel sounds. Differential diagnosis includes urinary tract infection versus ureterolithiasis versus hydronephrosis etc. Initial workup will be conducted with hematologic labs CT scan abdomen pelvis with contrast urinalysis. Initial interventions include crystalloid bolus Toradol Tylenol Zofran tamsulosin. Initial workup reviewed by me shows that he has hematuria but no evidence of urinary tract infection, his hematologic labs are nonactionable and my informal TURB rotation of his CT scan shows a proximal 5 mm left ureteral stone with mild hydronephrosis prior to radiology read. Please see final read for formal interpretation. Upon repeat evaluation patient reported complete resolution of his nausea and his pain. Given this patient is appropriate discharge with prescription for Zofran and Toradol and tamsulosin and referral to urology for ongoing management and care <Darren Martinez MD - Last Filed: 01/19/25 21:20> Vital Signs: 01/19/25 20:03 01/19/25 21:16 Temperature 98.5 F 98.4 F Temperature Source Oral Pulse Rate 71 Pulse Rate [Radial] 63 Respiratory Rate 16 22 Blood Pressure 115/72 Blood Pressure [Right Arm] 149/91 H Blood Pressure Mean [Right Arm] 110 Blood Pressure Position [Right Arm] Sitting 02 Sat by Pulse Oximetry 98 Oxygen Delivery Method Room Air Room Air Lab Data Lab Results 01/19/25 19:59: Urine Color Yellow, Urine Appearance Slightly cloudy, Urine pH 6.0, Ur Specific [place] 1.025, Urine Protein Negative, Urine Glucose (UA) Negative, Urine Ketones Negative, Urine Blood 3+ A, Urine Nitrate Negative, Urine Bilirubin Negative, Urine Urobilinogen 0.2, Ur Leukocyte Esterase Negative, Urine RBC 20-50, Urine WBC 3-5, Ur Squamous Epith Cells Occasional, Urine Bacteria Trace 01/19/25 20:05: WBC 10.8, RBC 4.90, Hgb 14.3, Hct 44.0, MCV 89.8, MCH 29.2, MCHC 32.5, RDW 13.3, Plt Count 339, MPV 10.3, Neut % (Auto) 66.1, Lymph % (Auto) 23.2, [place] % (Auto) 7.6, Eos % (Auto) 2.3, Baso % (Auto) 0.5, Neut # (Auto) 7.2, Lymph # (Auto) 2.5, [place] # (Auto) 0.8, Eos # (Auto) 0.3, Baso # (Auto) 0.1, Sodium 139, Potassium 4.2, Chloride 104, Carbon Dioxide 29, Anion Gap 10.2, BUN 13, Creatinine 1.20, Estimated Creat Clear 89, Estimated GFR 67, Est GFR ( Amer) 81, Glucose 113 H, Calcium 9.4, Total Bilirubin 0.4, AST 36, ALT 38, Alkaline Phosphatase 59, Total Protein 7.7, Albumin 4.6, Globulin 3.1, Albumin/Globulin Ratio 1.5 Orders (Tests/Meds): ED MEDICATIONS Discontinued Medications Generic Name Dose Route Start Last Admin Trade Name Freq PRN Reason Stop Dose Admin Acetaminophen 1,000 mg 01/19/25 20:06 01/19/25 20:17 Acetaminophen 500mg Tab PO 01/19/25 20:07 1,000 mg ONCE ONE Administration Sodium Chloride 1,000 mls @ 999 mls/hr 01/19/25 20:06 01/19/25 20:16 Sod Chlor 0.9% 1000ml Bag IV 01/19/25 21:06 999 mls/hr .Q1H1M ONE Administration Iopamidol 75 ml 01/19/25 20:30 01/19/25 20:31 Iopamidol-370 (76%);100ml Bottle IV 01/19/25 20:31 75 ml ONCE ONE Administration Ketorolac Tromethamine 15 mg 01/19/25 20:06 01/19/25 20:16 Ketorolac 30mg/Ml Vial IV 01/19/25 20:07 15 mg ONCE ONE Administration Ondansetron HCl 4 mg 01/19/25 20:06 01/19/25 20:16 Ondansetron 4mg/2ml Vial IV 01/19/25 20:07 4 mg ONCE ONE Administration Sodium Chloride 10 ml 01/19/25 20:30 01/19/25 20:31 Sodium Chloride 0.9% 10ml Syr (Rad Only) IV 01/19/25 20:31 10 ml ONCE ONE Administration ORDERS Category Date Time Status CT abdomen pelvis w con Stat Cat Scan 01/19/25 20:08 Taken CBC w/Auto Diff [Complete Blood Count Auto Diff] Stat Lab 01/19/25 20:05 Completed CMP [Comprehensive Metabolic Panel] Stat Lab 01/19/25 20:05 Completed UA [Urinalysis and Microscopic] Stat Lab 01/19/25 19:59 Completed Medical Decision Narrative: In summary patient is a 40-year-old male who presents to the emergency department for evaluation of left flank pain. Patient is hemodynamically stable upon arrival, afebrile with normal sinus rhythm on the bedside monitor with a rate of 63. Physical exam is remarkable for CVA tenderness to percussion of the left negative on the right, abdomen soft with no rebound or guarding or rigidity with normal bowel sounds. Differential diagnosis includes urinary tract infection versus ureterolithiasis versus hydronephrosis etc. Initial workup will be conducted with hematologic labs CT scan abdomen pelvis with contrast urinalysis. Initial interventions include crystalloid bolus Toradol Tylenol Zofran tamsulosin. Initial workup reviewed by me shows that he has hematuria but no evidence of urinary tract infection, his hematologic labs are nonactionable and my informal interpretation of his CT scan shows a proximal 5 mm left ureteral stone with mild hydronephrosis prior to radiology read. Please see final read for formal interpretation. Upon repeat evaluation patient reported complete resolution of his nausea and his pain. Given this patient is appropriate discharge with prescription for Zofran and Toradol and tamsulosin and referral to urology for ongoing management and care I was consulted by the LUDA, and we discussed the complexity of the problems being addressed. I approved the treatment and management plan for this patient's care in the Emergency Department, thus performing a substantive portion of the medical decision making. Darren Martinez MD Critical Care <YI Pryor - Last Filed: 01/19/25 21:04> Critical Care Time Critical Care Time: No
[2025-01-19 20:03] VITALS: BP 149/91; PULSE 63; RESP 16; TEMP 36.9; O2SAT 98; BMI 46.0
--- NOTE | 2025-01-19 20:08 | CT_ITS ---
PROCEDURE INFORMATION: Exam: CT Abdomen And Pelvis With Contrast Exam date and time: 01/19/2025 8:32 PM Age: 40 years old Clinical indication: Abdominal pain; Additional info: Left flank pain, h/o kidney stones TECHNIQUE: Imaging protocol: Computed tomography of the abdomen and pelvis with contrast. Radiation optimization: All CT scans at this facility use at least one of these dose optimization techniques: automated exposure control; mA and/or kV adjustment per patient size (includes targeted exams where dose is matched to clinical indication); or iterative reconstruction. Contrast material: ISOVUE; Contrast volume: 75 ml; Contrast route: IV; COMPARISON: CT ABDOMEN PELVIS WO CON 08/03/2023 6:38 AM FINDINGS: Liver: Diffuse fatty infiltration. Measures 21 cm. No mass. Gallbladder and biliary ducts: Normal. No calcified stones. No ductal dilation. Pancreas: Normal. No ductal dilation. Spleen: Normal. No splenomegaly. Adrenal glands: Normal. No mass. Kidneys and ureters: 0.5 cm left mid ureteral calculus with proximal hydroureter. Nonobstructive left renal calculi measuring up to 0.6 cm. Nonobstructive right renal calculi measuring up to 0.3 cm. 1.8 cm right renal cyst. Stomach and bowel: Unremarkable. No obstruction. No mucosal thickening. Appendix: No evidence of appendicitis. Intraperitoneal space: Unremarkable. No free air. No significant fluid collection. Vasculature: Unremarkable. No abdominal aortic aneurysm. Lymph nodes: Unremarkable. No enlarged lymph nodes. Urinary bladder: Unremarkable as visualized. Reproductive: Unremarkable as visualized. Bones/joints: Unremarkable. No acute fracture. Soft tissues: Unremarkable. IMPRESSION: 1. Left mid ureteral calculus with proximal hydroureter. Bilateral nonobstructive renal calculi. 2. Hepatomegaly with fatty infiltration. COMMENTS: Consistent with the [place]'s Incidental Findings Committee white paper (J Am Rios Radiol 2018): Any incidental renal lesion less than 1 cm or classified as too small to characterize, or any incidental cystic renal lesion characterized as simple-appearing, is likely benign. No follow-up imaging is recommended for these lesions per consensus recommendations based on imaging criteria.
[2025-01-19 20:14] LABS: Microscopic, Urine URINE MICROSCOPIC (MICROSCOPIC)
[2025-01-19 20:16] LABS: Basophils # 0.1 K/mm3 (0-0.2); Basophils % 0.5 % (0.1-2.0); Eosinophils # 0.3 Kmm3 (0.0-0.4); Eosinophils % 2.3 % (0.1-12.0); Hemoglobin 14.3 g/dL (14.1-18.0); Immature Granulocytes # 0.03 10^3uL; Immature Granulocytes % 0.3 %; Lymphocytes # 2.5 K/mm3 (0.7-4.5); Lymphocytes % 23.2 % (10-50); Mean Corpuscular HGB Conc 32.5 g/dL (31.8-35.4); Mean Corpuscular Hemoglobin 29.2 pg (27.0-31.2); Mean Corpuscular Volume 89.8 fl (80-94); Mean Platelet Volume 10.3 fl (7.4-10.4); Monocytes # 0.8 K/mm3 (0.1-1.0); Monocytes % 7.6 % (1.7-9.3); Neutrophils # 7.2 K/mm3 (1.8-7.8); Neutrophils % 66.1 % (37.0-80.0); Nucleated Red Blood Cells # 0 10^3/uL; Nucleated Red Blood Cells % 0 %; Platelet Count 339 K/mm3 (142-424); Red Cell Distribution Width 13.3 % (11.5-17.5); Red Cell Distribution Width-SD 43.7 fL; White Blood Count 10.8 K/mm3 (4.8-10.8)
[2025-01-19] MEDS: ONDANSETRON 4MG/2ML VIAL 4 MG IV (20:16)
[2025-01-19] MEDS: KETOROLAC 30MG/ML VIAL 15 MG IV (20:16)
[2025-01-19] MEDS: 0.9 % SODIUM CHLORIDE 1000ML 1,000 ML 999 ML IV (20:16)
[2025-01-19] MEDS: ACETAMINOPHEN 500MG TAB 1000 MG PO (20:17)
[2025-01-19 20:18] LABS: Albumin Level 4.6 g/dl (3.5-5.0); Chloride 104 mmol/L (98-107)
[2025-01-19 20:18] LABS: Bilirubin,Urine Negative (Negative); Blood, Urine 3+ (Negative); Color,Urine YELLOW (Yellow); Glucose,Urine (UA) Negative (Negative); Ketones,Urine Negative (Negative); Leukocyte Esterase,Urine Negative (Negative); Nitrate,Urine Negative (Negative); Protein,Urine Negative (Negative); Specific Gravity, Urine 1.025 (1.005-1.030); Urobilinogen,Urine 0.2 EU/dl (0.2)
[2025-01-19 20:19] LABS: Potassium 4.2 mmoL/L (3.5-5.1); Sodium 139 mmol/L (136-145)
[2025-01-19 20:19] LABS: Appearance,Urine Slightly Cloudy (Clear)
[2025-01-19 20:21] LABS: Alanine Aminotransferase 38 U/L (12-78); Anion Gap 10.2 mEq/L (5-15); Aspartate Amino Transferase 36 U/L (17-59); Blood Urea Nitrogen 13 mg/dl (9-20); Carbon Dioxide 29 mmol/L (22.0-30.0); Creatinine Clearance Estimated 89 mL/min (50-200); Estimated Glomerular Filt Rate 67 ml/min (>60); GFR (African American) 81 ML/MIN (>60)
[2025-01-19 20:22] LABS: Albumin/Globulin Ratio 1.5 (1.1-1.8); Alkaline Phosphatase 59 U/L (38-126); Bilirubin,Total 0.4 mg/dl (0.2-1.3); Calcium 9.4 mg/dl (8.4-10.2); Globulin 3.1 g/dL (1.3-3.2); Glucose 113 mg/dl (74-100); Total Protein,Serum 7.7 g/dl (6.3-8.2)
[2025-01-19] MEDS: IOPAMIDOL-370 (76%);100ML BOTTLE 75 ML IV (20:31)
[2025-01-19] MEDS: SODIUM CHLORIDE 0.9% 10ML SYR (RAD ONLY) 10 ML IV (20:31)
[2025-01-19 20:36] LABS: Bacteria,Urine Trace /lpf; RBC,Urine 20-50 #/hpf (0-3); Squamous Epithelial Cell,Urine Occasional #/hpf (0-5)
[2025-01-19 21:16] VITALS: BP 115/72; PULSE 71; RESP 22; TEMP 36.9; O2SAT 99
[2025-01-19 21:19] VITALS: BP 115/72; PULSE 75; RESP 14; TEMP 36.6; O2SAT 99
--- NOTE | 2025-01-20 08:56 | PC.NURSE ---
Helder from [facility] pharmacy called to verify the pt had torodol while here.
== END 2025-01-19 21:20 | disposition home or self-care (01) ==
PROVIDERS: Physician Assistant; Emergency Provider Emergency Medicine; PCP Internal Medicine Adolescent Medicine
DX: N13.0 Hydronephrosis with ureteropelvic junction obstruction (principal); R10.32 Left lower quadrant pain; N13.4 Hydroureter
CPT/HCPCS: 74177; 80053; 81001; 85025; 96361; 96374; 96375; 99285; J1885; J2405; J7030; Q9967

== ENCOUNTER 2025-02-24 13:53 | Outpatient (CLI) | payer OTHER, SELFPAY ==
--- OUTSIDE RECORDS SUMMARY | 2024-12-14 17:30 | XMS_ITS ---
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 Name Role Phone Juan Maguire Primary Care Provider Migration, Provider Unavailable Unavailable REASON FOR VISIT [facility] To [facility] Conversion Encounter Medications Medication SIG (Take, Route, Frequency, Duration) Notes Start Date End Date Status Flonase Allergy Relief 50 MCG/ACT 2 spray(s) intranasally twice daily for 30 days 07/27/2016 Active Propranolol HCl ER 60 MG 1 cap(s) orally once a day Active Lisinopril 10 MG 1 tab(s) orally once a day Active Ubrelvy 100 MG 1 tab(s) orally once a day prn migraine for 30 days Active Rosuvastatin Calcium 20 MG 1 tab(s) oral ly once a day for 90 days Active Xyzal Allergy 24HR 5 MG take one tablet by mouth in the evening orally once a day (in the evening) for 30 days Active Encounters Encounter Location Date Provider Diagnosis [facility] [address] [facility] [address] [place] [id number] 12/14/2024 Provider Migration Plan Of Treatment Medication Medication Name Sig Start Date Stop Date Notes Ubrelvy 100 MG 1 tab(s) orally once a day prn migraine for 30 days Progress Notes * Michele MEYERSDOB: [birth year] (40 yo M)Acc No.[id number]:12/14/2024 Patient: Michele DRAPER Provider: Castro Paul :1985 A ge:39 Y S ex:Male Date:12/14/2024 Address:[id number] Pcp:Juan Maguire Subjective: * Chief Complaints: * 1 . [facility] Conversion Encounter. * Medical History: * Medications: T aking Propranolol HCl ER 60 MG Capsule Extended Release 24 Hour 1 cap(s) orally once a day , Taking Lisinopril 10 MG Tablet 1 tab(s) orally once a day , Taking Flonase Allergy Relief 50 MCG/ACT Suspension 2 spray(s) intranasally twice daily , Taking Xyzal Allergy 24HR 5 MG Tablet take one tablet by mouth in the evening orally once a day (in the evening) , Taking Rosuvastatin Calcium 20 MG Tablet 1 tab(s) orally once a day Objective: * Vitals: Assessment: Plan: * Treatment: * * Electronic signature of Prov ider Migration on 02/24/2025 at 01:57 PM EDT Sign off status: Pending * Provider: Castro Paul Date: 0 12/14/2024 Generated for Evelyn jo/Brandt/Seth on: 0 02/24/2025 01:57 PM EDT
--- OUTSIDE RECORDS SUMMARY | 2025-02-24 13:58 | XMS_ITS | Data Portability ---
Author Organization [facility] SH[facility]I GranadoS EDINA CLOSED Address [address] [place] [address] Care Team Providers Care Pharmacist'S Aide Name Role Phone CELESTINA CESAR Referring Provider [phone] Assessment Encounter Date Assessment Date Assessment LastModified by Organization Details LastModified Time 01/18/2017 01/18/2017 SURGERY DATE: 01/18/2017 PREOPERATIVE DIAGNOSIS: Left proximal to mid ureteral stone. POSTOPERATIVE DIAGNOSIS: Left proximal to mid ureteral stone. PROCEDURE: Cystoscopy with left flexible ureteroscopy, Holmium laser of left ureteral calculus, left ureteral stent placement. ANESTHESIA: General. DRAINS: A 6-Mauritian x 28 cm left urethral stent, string attached. SPECIMEN: None. COMPLICATIONS: None. SURGEON: Gregory Minor MD BRIEF HISTORY: The patient is a 29-year-old gentleman who was initially evaluated by me for circumcision about 4 months ago and he recently developed left-sided flank pain, was seen at [facility] Emergency Room and had CT scan, which demonstrated a 5 mm stone in proximal left ureter. Remotely, he has a history of a uric acid stone. He elected to try to pass this spontaneously. He has had intermittent pain and recently has had more escalating pain. He had a KUB yesterday, which showed the stone likely in the same location about the L2 transverse process. After discussing options, he would like to proceed with intervention. The stone appears to be rather radiolucent and we decided to treat this with ureteroscopy and laser. OPERATIVE NOTE: After satisfactory general anesthesia, he was placed in dorsal lithotomy position. Genitalia was prepped and draped in normal fashion. The 22-Mauritian cystoscope sheath was introduced under direct vision, 30 degree lens. Urethra appeared normal. His prostate non obstructing. Finding in the bladder, bladder was unremarkable. A 0.035 sensor wire was advanced upto the stone and easily manipulated around the stone and advanced at the level of the kidney. Initially I tried to pass a 07/24 ureteral access sheath over the wire after removing the cystoscope. This met resistance at the transmural and rather than aggressive intervention, we elected to dilate this with a balloon dilating system. The transmural ureter was then dilated with 15-Mauritian balloon dilating system up to 12 atmospheres. There was no wasting and that seemed to dilate easily. I was then able to advance the ureter access sheath just above the iliac vessels. I then passed the flexible ureteroscope over the wire easily to the level of the stone and manipulated the stone back to the renal pelvis. The wire was then removed. A 200 micron fiber was used at 10 sequeira to fragment stone and most of which was powder, but small fragments no larger than 2 mm. Well tolerated, no significant bleeding. The wire was back loaded through the scope and the scope removed. Ureteral access sheath was removed and the stent placed over the wire. There was good curl in the kidney, curl in the bladder. String was left attached, excellent urethra. String was secured to skin with Tegaderm. Xylocaine jelly were instilled into the urethra. We will leave the stent for 72 hours. He will follow up with me in 2 weeks. [id number] Not available 01/18/2017 13:28:09 01/24/2025 01/24/2025 40 year old male with a history of recurrent renal calculi and ureteric stone presenting for management of a ureteric stone. Previous imaging identified a 5 mm left mid-ureteral stone and multiple nonobstructive renal calculi. The patient has a documented history of hypercalciuria contributing to calculi formation. Past interventions include a surgical procedure involving cystoscopy and ureteroscopy for lithotripsy of a ureteral stone by Dr. Minor in 2022. He is managing symptoms with tamsulosin and occasional Toradol. He is straining his urine. He says it typically take adair 2-3 weeks to pass stones. He will update me when he passes the stone or if he is having difficulty he will call for pain medicaton as needed. We discussed stone risk blood work and will order this at follow-up. He needs labs ordered to [facility] for insurance. We will follow-up in 2 months or sooner a needed. Plan: Continue tamsulosin 0.4 mg daily. Strain urine. Follow up in 2 months or sooner as needed. [email or web address] Not available 01/24/2025 08:34:51 Plan of Treatment Reminders Order Date Submit Date Provider Last Modified By Organization Details Last Modified Time Details Appointments RECHECK 2024 08:30A M ANNETTE BELLO [employer] Not available Not available Not available Lab urinalys is panel, auto 2024 025 roberto [address] [address], [facility] [address], [place], [address], 01/24/2025 08:14:15 Referral None recorded . Procedures None recorded . Surgeries None recorded . Imaging None recorded . Medication Orders None recorded . Patient TargetsNo targets recorded. Patient Instructions Encounter Date Encounter Id Patient Instructions Last Modified By Organization Details Last Modified Time 01/24/2025 [id number] - Continue takin g tamsulosin daily to help pass the ureteric stone. - Use Toradol only for severe pain episodes, as prescribed. - Increase fluid intake and dietary adjustments to lower calcium levels. - Use the stone strainer to catch any passed stones for analysis. - Set up an online portal account to monitor health records and communicate any changes in symptoms. - Contact medical services or schedule a follow-up visit if symptoms escalate or if there's difficulty in stone passage. - Follow-up with a urologist if necessary for further evaluation and management of kidney stones. [email or web address] Not available 01/24/2025 08:26:01 Reason for Referral None Reported. Results Created Date Observation Date Name Description Value Unit Range Abnormal Flag Note LastModifiedBy Organization Detail LastModifiedTime 01/19/2001/18/2017 urina lysis , dipst ick Unknown Analyte Yellow Not Available [facility] Surgery Schedule [address] [place], [address], 01/18/2017 08:48:19 01/19/20 17 01/18/2017 urina lysis , dipst ick Unknown Analyte Clear Not Available [facility] Surgery Schedule [address] [place], [address], 01/18/2017 08:48:19 01/19/20 17 01/18/2017 urina lysis , dipst ick Unknown Analyte 1.020 Not Available [facility] Surgery Schedule [address] [place], [address], 01/18/2017 08:48:19 01/19/20 17 01/18/2017 urina lysis , dipst ick Unknown Analyte 5.0 Not Available [facility] Surgery Schedule [address] [place], [address], 01/18/2017 08:48:19 01/19/2001/18/2017 urina lysis , dipst ick Unknown Analyte Negati ve Not Available [facility] Surgery Schedule [address] [place], [address], 01/18/2017 08:48:19 01/19/2001/18/2017 urina lysis , dipst ick Unknown Analyte Negati ve Not Available [facility] Surgery Schedule [address] [place], [address], 01/18/2017 08:48:19 01/19/2001/18/2017 urina lysis , dipst ick Unknown Analyte Negati ve Not Available [facility] Surgery Schedule [address] [place], [address], 01/18/2017 08:48:19 01/19/2001/18/2017 urina lysis , dipst ick Unknown Analyte Normal Not Available [facility] Surgery Schedule [address] [place], [address], 01/18/2017 08:48:19 01/19/2001/18/2017 urina lysis , dipst ick Unknown Analyte Negati ve Not Available [facility] Surgery Schedule [address] [place], [address], 01/18/2017 08:48:19 01/19/20 17 01/18/2017 urina lysis , dipst ick Unknown Analyte Normal Not Available [facility] Surgery Schedule [address] [place], [address], 01/18/2017 08:48:19 01/19/20 17 01/18/2017 urina lysis , dipst ick Unknown Analyte Negati ve Not Available [facility] Surgery Schedule [address] [place], [address], 01/18/2017 08:48:19 01/19/20 17 01/18/2017 urina lysis , dipst ick Unknown Analyte 50 Wm/ul Not Available [facility] Surgery Schedule [address] [place], [address], 01/18/2017 08:48:19 01/19/20 17 01/18/2017 urina lysis , dipst ick Unknown Analyte Automa sherif Not Available [facility] Surgery Schedule [address] [place], [address], 01/18/2017 08:48:19 01/19/20 17 01/18/2017 urina lysis , dipst ick Unknown Analyte Clean Catch Not Available [facility] Surgery Schedule [address] [place], [address], 01/18/2017 08:48:19 01/25/2001/24/2025 urina lysis panel , auto Unknown Analyte Clean Catch Not Available [facility] [address] [place], [address], 01/24/2025 08:04:29 01/25/20 25 01/24/2025 urina lysis panel , auto Unknown Analyte Yellow Not Available [facility] [address] [place], [address], 01/24/2025 08:04:29 01/25/20 25 01/24/2025 urina lysis panel , auto Unknown Analyte Clear Not Available [facility] [address] [facility], [place], [address], 01/24/2025 08:04:29 01/25/2001/24/2025 urina lysis panel , auto Unknown Analyte 1.015 Not Available [facility] [address] [facility], [place], [address], 01/24/2025 08:04:29 01/25/20 25 01/24/2025 urina lysis panel , auto Unknown Analyte 6.0 Not Available [facility] [address] [facility], [place], [address], 01/24/2025 08:04:29 01/25/20 25 01/24/2025 urina lysis panel , auto Unknown Analyte Negati ve Not Available [facility] [address] [facility], [place], [address], 01/24/2025 08:04:29 01/25/20 25 01/24/2025 urina lysis panel , auto Unknown Analyte Negati ve Not Available [facility] [address] [facility], [place], [address], 01/24/2025 08:04:29 01/25/20 25 01/24/2025 urina lysis panel , auto Unknown Analyte Negati ve Not Available [facility] [address] [facility], [place], [address], 01/24/2025 08:04:29 01/25/20 25 01/24/2025 urina lysis panel , auto Unknown Analyte Normal Not Available [facility] [address] [facility], [place], [address], 01/24/2025 08:04:29 01/25/20 25 01/24/2025 urina lysis panel , auto Unknown Analyte Negati ve Not Available [facility] [address] [facility], [place], [address], 01/24/2025 08:04:29 01/25/2001/24/2025 urina lysis panel , auto Unknown Analyte Normal Not Available [facility] [address] [facility], [place], [address], 01/24/2025 08:04:29 01/25/20 25 01/24/2025 urina lysis panel , auto Unknown Analyte Negati ve Not Available [facility] [address] [facility], [place], [address], 01/24/2025 08:04:29 01/25/2001/24/2025 urina lysis panel , auto Unknown Analyte Trace Not Available [facility] [address] [facility], [place], [address], 01/24/2025 08:04:29 01/18/20 17 01/17/2017 XR, kidne y + urete r + bladd er No observ ation record ed. [email or web address] [address], [place], [address] 01/19/2017 14:49:20 02/15/20 17 01/04/2017 CT, abdom en + pelvi s, w/o contr ast No observ ation record ed. BARCODE [address], [place], [address], 02/14/2017 16:58:17 07/29/20 17 07/28/2017 CT, abdom en + pelvi s, w/o contr ast No observ ation record ed. [email or web address] Not Available 2016 08:58:40 08/09/20 17 07/28/2017 CT, abdom en + pelvi s, w/o contr ast No observ ation record ed. BARCODE [address], [place], [address], 08/09/2017 18:04:32 01/23/20 25 01/19/2025 CT, abdom en + pelvi s, w/ contr ast No observ ation record ed. [email or web address] Not Available 2024 16:22:13 Result Notes None recorded. Medical Equipment None Reported. Allergies No known drug allergies Medications Name Sig Start Date Stop Date Status Note LastModified by Organization Details LastModified Time Zyrtec 10 mg tablet Daily active Frequ ency: daily ;Alt Frequ ency: prn;M edica tion Descr iptio n: cetir izine ; Dosag e:1; Route :oral ; refil ls:0 Not Available Not Available Not Available Aleve 220 mg tablet Every eight hours active Frequ ency: q8h;A lt Frequ ency: prn;M edica tion Descr iptio n: napro xen; Dosag e:1; Route :oral ; refil ls:0 Not Available Not Available Not Available tamsulosin 0.4 mg capsule Take 1 capsule every day by oral route. 2024 active Not Available Not Available Not Avai lable lisinopril 10 mg tablet Take 1 tablet every day by oral route. active Not Available Not Available No t Available hydrochlorot hiazide 25 mg tablet Daily 01/24 completed Frequ ency: daily ;Medi catio n Descr iptio n: hydro chlor othia zide; Dosag e:1; Route :oral ; refil ls:0 Not Available Not Available Not Available propranolol ER 120 mg capsule,24 hr,extended release Take 1 capsule every day by oral route. active Not Available Not Available No t Available ketorolac 2024 active Not Available Not Available Not Avai lable Vitals Date Recorded Body height Body mass index (BMI) Body weight Provider Name and Address Organization Details Last Updated DateTime 01/24/2025 182.88 cm 46.1 kg/m2 077596.41 g Verena Karimi [facility] 01/24/2025 08:02:35 Social History Question Answer Notes LastModified by Organizat ion Details LastModified Time Tobacco Smoking Status Never Smoker Not Available [employer] 01/24/2025 07:45:52 What Is Your Relationship Status? [email or web address] Information not available 01/24/2025 Sex: Unknown Functional Status Question Answer Note LastModified by Organizat ion Details LastModified Time How many times per week do you consume alcohol? Less than 1 time per week [email or web address] Information not available 01/24/2025 Do you or have you ever used any other forms of tobacco or nicotine? No [email or web address] Information not available 01/24/2025 What is your level of alcohol consumption? Occasional [email or web address] Information not available 01/24/2025 Are you currently employed? 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 Family History Relationship Description Onset Age of this Age Resolved Age Notes LastModified by Organization Details LastModified Time Paternal Grandmother Family history of malignant neoplasm [email or web address] Not available 2024 07:45:51 Medical History Condition Response Kidney Stones Y Past Encounters Encounter ID Performer Location Encounter Start Date Encounter Closed Date Diagnosis/Indication Diagnosis SNOMED-CT Code Diagnosis ICD10 Code Diagnosis Note [id number] GREGORY MINOR MD SURGERY SCHEDULE [address] [place] [address] 01/18/2017 08:19:14 01/18/2017 08:25:58 [id number] ANNETTE BELLO APRN UROLOGY [address] [place] [address] 01/24/2025 07:45:27 01/24/2025 11:36:33 Ureteric stone 58108922 N20.1 The patient presents with a left mid-ureter al stone measuring 5 mm. Continue the current therapy with tamsulosin to facilitate stone passage. Prescribe Toradol for acute pain episodes. Consider surgical interventi on if symptoms worsen or the stone does not pass. Kidney stone 83751204 N2 0.0 Nonobstruc tive renal calculi are identified bilaterall y. Monitor for future interventi on requiremen ts if calculi become symptomati c. Management includes dietary adjustment s to reduce calcium levels and potentiall y using hydrochlor othiazide to prevent stone formation. Refer to a urologist if monitoring shows increased calculi size or activity. Health Concerns Section Related Observation LastModified by Organization Detai ls LastModified Time None Recorded Concern Status LastModified by Organization Details LastModified Time None Recorded Advance Directives Directive None Recorded Payers Insurance Date Sequence Insurance Name Policy Number Policy Trin[place] Covered Member ID Trin[place] Member ID Guarantor Name 01/28/2025 1 [id number] Deirdre Jackson [id number] Michele Jackson 02/14/2025 2 [place] [id number] Michele Jackson [id number] Michele Jackson 08/17/2018 PAYMENT PLAN Michele Jackson Notes Date Note Type Note Provider Name and Address Organization Details Recorded Time 01/24/2025 text/html The patient is a 40 year old male presenting with ureteric stone and renal calculi. CT imaging from a recent emergency room visit at [facility] identified a 5 mm left mid-ureteral stone with associated proximal hydroureter. Additionally, there are nonobstructive renal calculi present bilaterally along with a right renal cyst measuring 1.8 cm. He is taking tamsulosin for stone facilitation and has a strainer for stone capture. He is using oral Toradol for pain relief. He has been pain free since he was seen in the ER 01/19/25. The patient's history is significant for recurrent renal calculi, having passed multiple stones in the past and undergoing surgical intervention for a significant calculus previously. Current symptoms include intermittent sharp pain and discomfort, which have been partially managed with Toradol. The patient experiences recurrent issues due to the over-secretion of calcium, impacting stone formation, and has been advised on dietary and fluid intake adjustments. Past surgical history involves ureteroscopy and related interventions to address symptomatic stones. ANNETTE BELLO, [address] [place], [address], [facility] 01/24/2025 08:35:02
--- OUTSIDE RECORDS SUMMARY | 2025-02-24 13:58 | XMS_ITS | Patient Health Record ---
Author Organization [facility] D JOSE FRANCISCO Address [address] [place] [address] Care Team Providers Care Roller Shop Utility Worker Name Role Phone Juan Maguire Primary Care Provider Nicole Lind Unavailable [phone] Migration, Provider Unavailable Unavailable Allergies No Known Allergies Results Component Value Reference Range Notes VITAMIN D,25-OH,TOTAL,IA (17 306) Reviewed date:05/19/2024 01:06:28 PM Interpretation: Performing Lab:[facility], [facility] Juan Guy Notes/Report: FASTING: YES FASTING:YES NON-FASTING; NON-FASTING; NON-FASTING; NON-FASTING; NON-FAST VITAMIN D,25-OH,TOTAL,IA 19 30-100 ng/mL Vitamin D Status 25-OH Vitamin D: Deficiency: <20 ng/mL Insufficiency: 20 - 29 ng/mL Optimal: > or = 30 ng/mL For 25-OH Vitamin D testing on patients on D2-supplementation and patients for whom quantitation of D2 and D3 fractions is required, the QuestAssureD(TM) 25-OH VIT D, (D2,D3), LC/MS/MS is recommended: order code 45755 (patients >2yrs). See Note 1 Note 1 For additional information, please refer to http://education.[employer].com/faq/TAJ312 (This link is being provided for informational/ educational purposes only.) TSH W/REFLEX TO FT4 (69711) Reviewed date:05/19/2024 01:06:20 PM Interpretation: Performing Lab:[facility] Cl[address] [facility], [place] RljuJY[address] Juan Guy Notes/Report: NON-FASTING; NON-FASTING; NON-FASTING; NON-FASTING; NON-FAST FASTING:YES FASTING: YES TSH W/REFLEX TO FT4 2.82 0.40-4.50 mIU/L VITAMIN B12 (927) Reviewed date:05/19/2024 01:06:15 PM Interpretation: Performing Lab:[facility] [address], [place] DuanJH[address] Juan Guy Notes/Report: NON-FASTING; NON-FASTING; NON-FASTING; NON-FASTING; NON-FAST FASTING:YES FASTING: YES VITAMIN B12 447 012-2338 pg/mL Please Note: Although the reference range for vitamin B12 is 200-1100 pg/mL, it has been reported that between 5 and 10% of patients with values between 200 and 400 pg/mL may experience neuropsychiatric and hematologic abnormalities due to occult B12 deficiency; less than 1% of patients with values above 400 pg/mL will have symptoms. TESTOSTERONE, TOTAL, MALES ( ADULT), IA (873) Reviewed date:05/19/2024 01:06:34 PM Interpretation: Performing Lab:[facility] Ktyp[address] [facility], [place] KpcoMK[address] Juan Guy Notes/Report: NON-FASTING; NON-FASTING; NON-FASTING; NON-FASTING; NON-FAST FASTING:YES FASTING: YES TESTOSTERONE, TOTAL, MALES (ADULT), IA 218 250-827 ng/dL In hypogonadal males, Testosterone, Total, LC/MS/MS, is the recommended assay due to the diminished accuracy of immunoassay at levels below 250 ng/dL. This test code (18334) must be collected in a red-top tube with no gel. COMPREHENSIVE METABOLIC PANE L (34054) Reviewed date:05/18/2024 09:50:07 AM Interpretation: Performing Lab:[facility]RI[facility]IAN [facility] [address], [place] Juan Guy Notes/Report: NON-FASTING; NON-FASTING; NON-FASTING; NON-FASTING; NON-FAST FASTING:YES FASTING: YES GLUCOSE 102 65-99 mg/dL Fasting reference interval For someone without known diabetes, a glucose value between 100 and 125 mg/dL is consistent with prediabetes and should be confirmed with a follow-up test. UREA NITROGEN (BUN) 13 7-25 mg/dL CREATININE 1.05 0.60-1.29 mg/dL EGFR 92 > OR = 60 mL/min/1.73m2 BUN/CREATININE RATIO SEE NOTE: 6-22 (calc) Not Reported: BUN and Creatinine are within reference range. SODIUM 139 135-146 mmol/L POTASSIUM 4.4 3.5-5.3 mmol/L CHLORIDE 103 98-110 mmol/L CARBON DIOXIDE 26 20-32 mmol/L CALCIUM 9.4 8.6-10.3 mg/dL PROTEIN, TOTAL 7.3 6.1-8.1 g/dL ALBUMIN 4.5 3.6-5.1 g/dL GLOBULIN 2.8 1.9-3.7 g/dL (calc) ALBUMIN/GLOBULIN RATIO 1.6 1.0-2.5 (calc) BILIRUBIN, TOTAL 0.5 0.2-1.2 mg/dL ALKALINE PHOSPHATASE 62 36-130 U/L AST 20 10-40 U/L ALT 24 9-46 U/L LIPID PANEL, STANDARD (7600) Reviewed date:05/18/2024 09:50:07 AM Interpretation: Performing Lab:CHRISTIAN [facility] Kymx[address] [facility] HospitalLlmvPI[address] Juan Guy Notes/Report: NON-FASTING; NON-FASTING; NON-FASTING; NON-FASTING; NON-FAST FASTING:YES FASTING: YES CHOLESTEROL, TOTAL 119 <200 mg/dL HDL CHOLESTEROL 39 > OR = 40 mg/dL TRIGLYCERIDES 178 <150 mg/dL LDL-CHOLESTEROL 55 Reference range: <100 Desirable range <100 mg/dL for primary prevention; <70 mg/dL for patients with CHD or diabetic patients with > or = 2 CHD risk factors. LDL-C is now calculated using the Joel-Marlys calculation, which is a validated novel method providing better accuracy than the Friedewald equation in the estimation of LDL-C. Joel QUIJANO et al. DAMON. 2013;310(19): 0229-3531 (http://education.[facility] ostics.ZANK.mobi/faq/RIN211) CHOL/HDLC RATIO 3.1 <5.0 (calc) NON HDL CHOLESTEROL 80 <130 mg/dL (calc) For patients with diabetes plus 1 major ASCVD risk factor, treating to a non-HDL-C goal of <100 mg/dL (LDL-C of <70 mg/dL) is considered a therapeutic option. CBC (INCLUDES DIFF/PLT) (639 9) Reviewed date:05/18/2024 09:50:07 AM Interpretation: Performing Lab:CHRISTIAN [facility]-[address]e[address] [employer], AdanIxkmLZ[address] Juan Guy Notes/Report: NON-FASTING; NON-FASTING; NON-FASTING; NON-FASTING; NON-FAST FASTING:YES FASTING: YES WHITE BLOOD CELL COUNT 7.7 3.8-10.8 Thousand/ uL RED BLOOD CELL COUNT 5.01 4.20-5.80 Million/uL HEMOGLOBIN 14.8 13.2-17.1 g/dL HEMATOCRIT 46.7 38.5-50.0 % MCV 93.2 80.0-100.0 fL MCH 29.5 27.0-33.0 pg MCHC 31.7 32.0-36.0 g/dL RDW 13.2 11.0-15.0 % PLATELET COUNT 330 140-400 Thousand/uL MPV 10.9 7.5-12.5 fL ABSOLUTE NEUTROPHILS 4920 6389-8559 cells/uL ABSOLUTE LYMPHOCYTES 2064 850-3900 cells/uL ABSOLUTE MONOCYTES 439 200-950 cells/uL ABSOLUTE EOSINOPHILS 239 15-500 cells/uL ABSOLUTE BASOPHILS 39 0-200 cells/uL NEUTROPHILS 63.9 LYMPHOCYTES 26.8 MONOCYTES 5.7 EOSINOPHILS 3.1 BASOPHILS 0.5 HEMOGLOBIN A1c (496) Reviewed date:05/18/2024 09:50:07 AM Interpretation: Performing Lab:CHRISTIAN [facility] [employer], AdanGkutTZ[address] Juan Guy Notes/Report: NON-FASTING; NON-FASTING; NON-FASTING; NON-FASTING; NON-FAST FASTING:YES FASTING: YES HEMOGLOBIN A1c 5.7 <5.7 % of total Hgb testing conducted on different platforms is not recommended. Based on laboratory validation testing conducted at [facility], the Brad platform relative to the Ferguson platform had an average increase in HbA1c value of < or = 0.3%. This difference is within accepted variability established by the National Glycohemoglobin Standardization Program. Note that not all individuals will have had a shift in their results and direct comparisons between historical and current results for of diabetes. Currently, no consensus exists regarding use of hemoglobin A1c for diagnosis of diabetes for children. This test was performed on the Brad sherita c503 platform. Effective 11/15/23, a change in test platforms from the Ferguson Deputy Sheriff Chief to the Brad sherita c503 may have shifted HbA1c results compared to historical results. This assay result is consistent with an increased risk For someone without known diabetes, a hemoglobin A1c value between 5.7% and 6.4% is consistent with prediabetes and should be confirmed with a follow-up test. For someone with known diabetes, a value <7% indicates that their diabetes is well controlled. A1c targets should be individualized based on duration of diabetes, age, comorbid conditions, and other considerations. CORTISOL, A.M. (4212) Reviewed date:05/18/2024 01:04:21 PM Interpretation: Performing Lab:[facility], [facility] InstituteOdhoEP[address] Juan Guy Notes/Report: NON-FASTING; NON-FASTING; NON-FASTING; NON-FASTING; NON-FAST FASTING:YES FASTING: YES CORTISOL, A.M. 10.4 Reference Range 8 a.m. (7-9 a.m.) Specimen: 4.0-22.0 Rapid Covid/Flu A-B Combo Reviewed date:09/07/2024 01:22:01 PM Interpretation: Performing Lab: Notes/Report: Rapid Covid POS Flu A NEG Flu B NEG Reason For Referral Reason Urology Referral Organization [facility] JOSE FRANCISCO Referring Provider First Name Juan Referring Provider Last Name Ting Referring Provider Speciality Internal M edicine Referred Organization [facility] Referred Address [address], [place],[address], Referred Provider Specialty Urology General Notes Karolina Gilmore 2024 02:50:27 PM >[facility] Referral Priority Routine Medications Medication SIG (Take, Route, Frequency, Duration) Notes Start Date End Date Status Flonase Allergy Relief 50 MCG/ACT 2 spray(s) intranasally twice daily for 30 days 07/27/2016 Active Propranolol HCl ER 60 MG 1 cap(s) orally once a day Active Lisinopril 10 MG 1 tab(s) orally once a day Active Xyzal Allergy 24HR 5 MG take one tablet by mouth in the evening orally once a day (in the evening) for 30 days Active Ubrelvy 100 MG 1 tab(s) orally once a day prn migraine for 30 days Active Rosuvastatin Calcium 20 MG 1 tab(s) oral ly once a day for 90 days Active Immunizations Vaccine Route Administration Date Status Comme nts Adacel (Tdap) IM Intramuscular 07/29/2014 Administered Flublok IM Intramuscular 08/19/2022 Administered Fluvirin--Influenza vaccine 3+ year IM Intramuscular 07/29/2014 Administered Fluzone High Dose IM Intramuscular 05/21/2020 Administered Hep A Adult 2 Dose IM Intramuscular 01/30/2018 Administere d Hep A Adult 2 Dose IM Intramuscular 08/08/2018 Administere d Influenza-Fluzone 3+years (NON-MEDICARE) IM Intramuscular 06/29/2015 Administered Influenza-Fluzone 3+years (NON-MEDICARE) IM Intramuscular 07/21/2017 Administered Influenza-Fluzone 3+years (NON-MEDICARE) IM Intramuscular 08/08/2018 Administered Problems Problem Type SNOMED Code ICD Code Onset Dates Problem Status W/U Status Risk Notes Problem 923853365 Chronic serous otitis media, bilateral (H65.23) Active confirmed Problem 369758925 Other allergic rhinitis (J30.89) Active confirmed Problem 450162612 BMI 45.0-49.9, adult (Z68.42) Active confirmed Problem 85873634 Vitamin D deficiency (E55.9) Active confirmed Problem 73623214 HTN (hypertension), benign (I10) Active confirmed Problem 294520760 Hyperlipemia, idiopathic familial (E78.5) Active confirmed Problem 519776102 Seasonal allergi es (J30.2) Active confirmed Problem 066566243 Obesity (BMI 30-39.9) (E66.9) Active confirmed Problem Fatty liver (616668070) Fatty liver (K76.0) Active confirmed Problem Carotid atherosclerosis (920609780) Carotid atherosclerosis (I65.29) Active confirmed Problem 16405538 Seasonal allergi c rhinitis due to pollen (J30.1) Active confirmed Problem 459560891 Intractable migraine without aura and with status migrainosus (G43.011) Active confirmed Problem 54836788 Right nephrolithiasis (N20.0) Active confirmed Problem 923581471 Melanocytic nevu s of skin (D22.9) Active confirmed Problem 67930636 Bony abnormality (Q79.9) Active confirmed Problem 076336671645757 Episodic migrain e (G43.909) Active confirmed Vital Signs Heart Rate 84 /min 09/07/2024 Temperature 100.0 degrees Fahrenheit 09/07/2024 Blood pressure diastolic 74 mm Hg 09/07/2024 Height 72 in 09/07/2024 Blood pressure systolic 106 mm Hg 09/07/2024 Weight 337.2 lbs 09/07/2024 BMI 45.73 kg/m2 09/07/2024 Encounters Encounter Location Date Provider Diagnosis [facility] JOSE FRANCISCO [address] [place] [address] 05/17/2024 [facility] JOSE FRANCISCO [address] [place] [address] 12/14/2024 Provider Migration [facility] JOSE FRANCISCO [address] [facility] [address] [place] [address] 05/23/2024 [facility] Routine medical exam Z00.00 ; BMI 45.0-49.9, adult Z68.42 ; Seasonal allergies J30.2 ; HTN (hypertension), benign I10 ; Hyperlipemia, idiopathic familial E78.5 ; Episodic migraine G43.909 ; Low testosterone R79.89 and Vitamin D deficiency E55.9 [facility] JOSE FRANCISCO [address] [facility] [address] [place] [address] 09/07/2024 Juan Tateenrike Acute cough R05.1 ; COVID-19 U07.1 and Acute febrile illness R50.9 [facility] JOSE FRANCISCO [address] [facility] [address] [place] [address] 05/14/2024 [facility] Obesity (BMI 30-39.9 ) E66.9 ; Fatty liver K76.0 ; HTN (hypertension), benign I10 ; Hyperlipemia, idiopathic familial E78.5 and Routine medical exam Z00.00 Assessments Encounter Date Diagnosis (ICD Code) Assessment Notes Treatment Notes Treatment Clinical Notes Section Notes 05/14/2024 Obesity (BMI 30-39.9) (ICD-10 - E66.9) 05/14/2024 Fatty liver (ICD-10 - K76.0) 05/23/2024 BMI 45.0-49.9, adult (ICD-10 - Z68.42) 05/23/2024 Routine medical exam (ICD-10 - Z00.00) Well Visit, Ages 18 to 65: Care Instructions material was published 09/07/2024 COVID-19 (ICD-10 - U07.1) Discussed importance of pulmonary toilet and hydration. OTC medications for symptom management reviewed. Discussed reasons to seek care in clinic or ED (worsening cough, shortness of breath, high fever not responding to treatment, inability to tolerate typical PO intake). Also recommended self-quarantine at home per CDC guidelines. 09/07/2024 Acute cough (ICD-10 - R05.1) Discussed best home remedies for cough, supportive care. Ordered tests as noted given COVID exposure, please note I ordered test, and interpreted them, raising the complexity of the visit 05/14/2024 HTN (hypertension), benign (ICD-10 - I10) 05/23/2024 Seasonal allergies (ICD-10 - J30.2) continue xyzalaldairnase routinely 09/07/2024 Acute febrile illness (ICD-10 - R50.9) Given propensity of community flu spread flu testing was also done, ordered and interpreted by me 05/14/2024 Hyperlipemia, idiopathic familial (ICD-10 - E78.5) 05/23/2024 HTN (hypertension), benign (ICD-10 - I10) well controlled on current regimen 05/23/2024 Hyperlipemia, idiopathic familial (ICD-10 - E78.5) continue rosuvastatin, discussed lower carb diet, higher fiber and possible addition of fish oil 05/14/2024 Routine medical exam (ICD-10 - Z00.00) 05/23/2024 Episodic migraine (ICD-10 - G43.909) well controlled on propranolol and PRN Ubrelvy 05/23/2024 Low testosterone (ICD-10 - R79.89) Discussed lifestyle changes that should improve testosterone levels, repeat in 3-6 months for comparison and consider replacement at that time if still significantly low 05/23/2024 Vitamin D deficiency (ICD-10 - E55.9) 50 mcg daily OTC recommended 05/23/2024 Other Hypogonadism: Care Instructions material was published Plan Of Treatment Pending Test Test Name Order Date Physical Therapy 06/19/2020 Physical Therapy 06/30/2020 C-MISC CULTURE 05/20/2015 M-Vitamin B12 04/13/2023 M-COVID 19 PCR SEND OUT 06/26/2020 M-COVID PCR SINGLE RAPID 06/23/2020 Insurance Providers Payer Name Payer Address Payer Phone Subscriber Number Group Number Insured Name Patient Relationship to Insured Coverage Start Date Coverage End Date R [address] [address] [place] [address] [phone] [id number] Michele Jackson Self - patient is the insured Medications Administered Medication Instructions Date of Administration Dosage Notes Ceftriaxone 500 10/14/2019 500 mg Dexamethasone 4mg Injection 12/14/2023 4 mg Kenalog 40mg 03/01/2017 40 mg Kenalog 40mg 10/03/2017 40 mg Triamcinolone Acetonide 40mg Injection 10/14/2019 1 mL Medical (General) History Medical History History ICD Code arthritis torn meniscus -left knee vasectomy- 01/20/2016 Kidney stones Migraine headaches Colonoscopy 07/01 with polyps... 3 year f/u HTN, mild carotid atherosclerosis Surgical History Surgery Date(Month/Year) arthroscopic knee surgery-torn meniscus left kidney stone removal 01/2017
--- OUTSIDE RECORDS SUMMARY | 2025-02-24 13:58 | XMS_ITS | Clinical Summary ---
Author Organization [facility] [place] [address] Care Team Providers Care Business Solutions Architect Name Role Phone Unavailable Primary Care Provider Unavailabl e Social History Tobacco Use Types Packs/Day Years Used Date Smoking Tobacco: Never Assessed Sex and Gender Information Value Date Recorded Sex Assigned at Male 03/19/2024 7:11 PM EDT Legal Sex Male 1:59 PM EDT Gender Identity Male 03/19/2024 7:11 PM EDT Sexual Orientation Straight 03/19/2024 7: 11 PM EDT Last Filed Vital Signs Vital Sign Reading Time Taken Comments Blood Pressure 123/76 04/03/2023 2:36 PM EDT Pulse 92 04/03/2023 2:36 PM EDT Temperature - - Respiratory Rate - - Oxygen Saturation - - Inhaled Oxygen Concentration - - Weight 146 kg (322 lb) 04/03/2023 2:36 PM EDT Height 182.9 cm (6') 04/03/2023 2:36 PM EDT Body Mass Index 43.67 04/03/2023 2:36 PM EDT Plan of Treatment Health Maintenance Due Date Last Done Comments [facility]-Depression Screening 1984 [facility]-Infant/Child/Adol SDOH Screenings 1984 [facility]-Varicella Vaccines (1 of 2 - 13+ 2-dose series) 01/12/1997 HPV Vaccines (1 - Male 3-dose series) 01/12/1999 [facility]- SDOH Screenings 01/12/2002 [facility]-Adult SDOH Screenings 01/12/2002 [facility]-DTaP,Tdap,and Td Vaccines (1 - Tdap) 01/12/2003 [facility]-Hepatitis B Vaccines (1 of 3 - 19+ 3-dose series) 01/12/2003 PWA-[id number]-02 Vaccine (3 - 2023- season) 2024 05/04/2021, 04/06/2021 [facility]-Influenza Vaccine (Season Ended) 2025 08/19/2022, 08/08/2018, 07/21/2017 [facility]-Zoster Vaccines (1 of 2) 01/12/2034 [facility]-Hepatitis A Vaccines Aged Out 018, 01/30/2018 No longer eligible based on patient's age to complete this topic [facility]-HIB Vaccines Aged Out No longer e ligible based on patient's age to complete this topic [facility]-IPV Vaccines Aged Out No longer e ligible based on patient's age to complete this topic [facility]-Pneumococcal Vaccine: Pediatrics (0 to 5 Years) and At-Risk Patients (6 to 49 Years) Aged Out No longer eligible b ased on patient's age to complete this topic [facility]-Rotavirus Vaccines Aged Out No lo nger eligible based on patient's age to complete this topic
--- OUTSIDE RECORDS SUMMARY | 2025-02-24 13:58 | XMS_ITS | Continuity of Care Document ---
Author Organization [facility], [facility] Address [address] [place] [address] Care Team Providers Care Business Liaison Manager Name Role Phone TALICELESTINA Referring Provider Assessment Encounter Date Assessment Date Assessment LastModified by Organization Details LastModified Time 01/24/2025 01/24/2025 40 year old male with [...] lithotripsy of a ureteral stone by Dr. Hernandez in 2022. He is managing symptoms with [...] at follow-up. He needs labs ordered to [facility] for insurance. We will follow-up in 2 months or sooner a needed. Plan: Continue tamsulosin 0.4 mg daily. Strain urine. Follow up in 2 months or sooner as needed. roberto Not available 01/24/2025 08:34:51 Plan of Treatment Reminders Order Date Submit Date Provider Last Modified By Organization Details Last Modified Time Details Appointments RECHECK 2024 08:30A Elías BELLO NP Not available Not available Not available Lab urinalys is panel, auto 2024 025 roberto [facility] [address] [facility], [place], [address], 01/24/2025 08:14:15 Referral None recorded . Procedures None recorded . Surgeries None recorded . Imaging None recorded . Medication Orders None recorded . Patient TargetsNo targets recorded. Patient Instructions Encounter Date Encounter Id Patient Instructions Last Modified By Organization Details Last Modified Time 01/24/2025 [id number] - Continue takin g tamsulosin daily to [...] Abnormal Flag Note LastModifiedBy Organization Detail LastModifiedTime 01/25/2001/24/2025 urina lysis panel , auto Unknown Analyte Clean Catch Not Available [facility] [address] [facility], [place], [address], 01/24/2025 08:04:29 01/25/2001/24/2025 urina lysis panel , auto Unknown Analyte Yellow Not Available [facility] [address] [facility], [place], [address], 01/24/2025 08:04:29 01/25/2001/24/2025 urina lysis panel , auto Unknown Analyte Clear Not Available [facility] [address] [facility], [place], [address], 01/24/2025 08:04:29 01/25/2001/24/2025 urina lysis panel , auto Unknown Analyte 1.015 Not Available [facility] [address] [facility], [place], [address], 01/24/2025 08:04:29 01/25/2001/24/2025 urina lysis panel , auto Unknown Analyte 6.0 Not Available [facility] [address] [facility], [place], [address], 01/24/2025 08:04:29 01/25/2001/24/2025 urina lysis panel , auto Unknown Analyte Negati ve Not Available [facility] [address] [facility], [place], [address], 01/24/2025 08:04:29 01/25/2001/24/2025 urina lysis panel , auto Unknown Analyte Negati ve Not Available [facility] [address] [facility], [place], [address], 01/24/2025 08:04:29 01/25/2001/24/2025 urina lysis panel , auto Unknown Analyte Negati ve Not Available [facility] [address] [facility], [place], [address], 01/24/2025 08:04:29 01/25/2001/24/2025 urina lysis panel , auto Unknown Analyte Normal Not Available [facility] [address] [facility], [place], [address], 01/24/2025 08:04:29 01/25/2001/24/2025 urina lysis panel , auto Unknown Analyte Negati ve Not Available [facility] [place], [address], 01/24/2025 08:04:29 01/25/202025 urina lysis panel , auto Unknown Analyte Normal Not Available [facility] [address] [facility], [place], [address], 01/24/2025 08:04:29 01/25/20 25 01/24/2025 urina lysis panel , auto Unknown Analyte Negati ve Not Available [facility] [address] [facility], [place], [address], 01/24/2025 08:04:29 01/25/2001/24/2025 urina lysis panel , auto Unknown Analyte Trace Not Available [facility] [address] [facility], [place], [address], 01/24/2025 08:04:29 01/23/20 25 01/19/2025 CT, abdom en + [...] Updated DateTime 01/24/2025 182.88 cm 46.1 kg/m2 952085.41 g Verena Karimi [facility] 01/24/2025 08:02:35 Social History Question Answer Notes [...] not available 01/24/2025 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 Continue the current therapy with tamsulosin to facilitate stone passage. Prescribe Toradol for acute pain episodes. Consider surgical interventi on if symptoms worsen or the stone does not pass. Kidney stone [id number] N2 0.0 Nonobstruc tive renal calculi are [...] by Organization Details LastModified Time None Recorded Payers Encounter Date Sequence Insurance Name Policy Number Policy Trinidad Covered Member ID Trinidad Member ID Guarantor Name 01/24/2025 2 [place] DAVID RHOADES [facility] [id number] Michele Jackson [id number] Michele Jackson 01/24/2025 1 [id number] Deirdre Jackson [id number] Michele Jackson Notes Date Note Type Note Provider Name and Address Organization Details Recorded Time 01/24/2025 text/html The patient is a 40 year old male presenting with ureteric stone and renal calculi. CT imaging from a recent emergency room visit at [facility] identified a 5 mm left mid-ureteral stone [...] interventions to address symptomatic stones. ANNETTE BELLO, [employer] WIRE INSTALLER [address] [place], [address], [facility] 01/24/2025 08:35:02
[2025-02-24 14:29] LABS: Basophils # 0.1 K/mm3 (0-0.2); Basophils % 0.6 % (0.1-2.0); Eosinophils # 0.2 Kmm3 (0.0-0.4); Eosinophils % 2.9 % (0.1-12.0); Hematocrit 42.7 % (42.0-52.0); Hemoglobin 13.8 g/dL (14.1-18.0); Immature Granulocytes # 0.01 10^3uL; Immature Granulocytes % 0.1 %; Lymphocytes # 2.6 K/mm3 (0.7-4.5); Mean Corpuscular HGB Conc 32.3 g/dL (31.8-35.4); Mean Corpuscular Hemoglobin 28.9 pg (27.0-31.2); Mean Corpuscular Volume 89.3 fl (80-94); Mean Platelet Volume 10.4 fl (7.4-10.4); Monocytes # 0.5 K/mm3 (0.1-1.0); Monocytes % 5.6 % (1.7-9.3); Neutrophils # 4.9 K/mm3 (1.8-7.8); Neutrophils % 59.8 % (37.0-80.0); Nucleated Red Blood Cells # 0 10^3/uL; Nucleated Red Blood Cells % 0 %; Platelet Count 299 K/mm3 (142-424); Red Blood Count 4.78 M/mm3 (4.60-6.20); Red Cell Distribution Width 13.4 % (11.5-17.5); White Blood Count 8.3 K/mm3 (4.8-10.8)
[2025-02-24 14:43] LABS: Anion Gap 8.9 mEq/L (5-15); Blood Urea Nitrogen 9 mg/dl (9-20); Calcium 9.7 mg/dl (8.4-10.2); Carbon Dioxide 30 mmol/L (22.0-30.0); Chloride 103 mmol/L (98-107); Estimated Glomerular Filt Rate 82 ml/min (>60); GFR (African American) 100 ML/MIN (>60); Glucose 105 mg/dl (74-100); Phosphorous 3.6 mg/dl (2.5-4.5); Potassium 3.9 mmoL/L (3.5-5.1); Sodium 138 mmol/L (136-145)
[2025-02-24 14:54] LABS: Intact Parathyroid Hormone 57.5 pg/mL (7.5-53.5)
== END 2025-02-24 23:59 | disposition home or self-care (01) ==
LOC: LAB 13:54
PROVIDERS: PCP Internal Medicine Adolescent Medicine; Visit Provider Nurse Practitioner Family
DX: N20.0 Calculus of kidney (principal)
CPT/HCPCS: 36415; 80048; 83970; 84100; 84550; 85025

== ENCOUNTER 2025-05-23 07:49 | Outpatient (CLI) | payer OTHER, SELFPAY ==
--- OUTSIDE RECORDS SUMMARY | 2024-12-14 17:30 | XMS_ITS ---
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 Name Role Phone Juan Maguire Primary Care Provider [phone] Migration, Provider Unavailable Unavailable REASON FOR VISIT [facility] To [facility] Conversion Encounter Medications Medication SIG (Take, Route, Frequency, Duration) Notes Start Date End Date Status Flonase Allergy Relief 50 MCG/ACT 2 spray(s) intranasally twice daily; Duration: 30 days 07/27/2016 Active Propranolol HCl ER 60 MG 1 cap(s) orally once a day Active Lisinopril 10 MG 1 tab(s) orally once a day Active Ubrelvy 100 MG 1 tab(s) orally once a day prn migraine; Duration: 30 days Active Rosuvastatin Calcium 20 MG 1 tab(s) oral ly once a day; Duration: 90 days Active Xyzal Allergy 24HR 5 MG take one tablet by mouth in the evening orally once a day (in the evening); Duration: 30 days Active Encounters Encounter Location Date Provider Diagnosis [facility] [address] [facility] [address] [facility] [address] [place] [address] 12/14/2024 Provider Migration Plan Of Treatment Medication Medication Name Sig Start Date Stop Date Notes Ubrelvy 100 MG 1 tab(s) orally once a day prn migraine; Duration: 30 days Next Appt Details Provider Name:Nicole moya, 05/29/2025 03:45:00 PM, [address] [facility] [address], [address], [place], [address], Progress Notes * Michele MEYERSDOB: [birth year] (40 yo M)Acc No.[id number]:12/14/2024 Patient: Michele DRAPER Provider: Castro Paul :1985 A ge:39 Y S ex:Male Date:12/14/2024 Address:[address] [place] [address] [place], [id number] Pcp:Juan Maguire Subjective: * Chief Complaints: * 1 . [facility] To [facility] Conversion Encounter. * Medical History: * Medications: [...] * Treatment: * * Electronic signature of Pato ider Migration on 05/23/2025 at 07:52 AM EDT Sign off status: Pending * Provider: Castro Paul Date: 12/14/2024 Generated for Evelyn jo/Brandt/Seth on: 0 05/23/2025 07:52 AM EDT
--- OUTSIDE RECORDS SUMMARY | 2025-05-20 07:29 | XMS_ITS ---
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 Name Role Phone Juan Maguire Primary Care Provider Nicole Lind [phone] REASON FOR VISIT lab order Encounters Encounter Location Date Provider Diagnosis [facility] [address] [place], [place] [address] 05/20/2025 Nicole Lind Routine medical exam Z00.00 ; HTN (hypertension), benign I10 ; Vitamin D deficiency E55.9 ; Low testosterone R79.89 and Prediabetes R73.03 Assessments Encounter Date Diagnosis (ICD Code) Assessment Notes Treatment Notes Treatment Clinical Notes Section Notes 05/20/2025 Routine medical exam (ICD-10 - Z00.00) 05/20/2025 HTN (hypertension), benign (ICD-10 - I10) 05/20/2025 Vitamin D deficiency (ICD-10 - E55.9) 05/20/2025 Low testosterone (ICD-10 - R79.89) 05/20/2025 Prediabetes (ICD-10 - R73.03) Plan Of Treatment Pending Test Test Name Order Date M-Complete Blood Count Auto Diff 025 M-Comprehensive Metabolic Panel 05/20/20 25 M-Hemoglobin A1C 05/20/2025 M-Lipid Panel 05/20/2025 M-Vitamin D 25 Hydroxy 05/20/2025 M-Testosterone 05/20/2025 Next Appt Details Provider Name:Nicole Ramirez ce, 05/29/2025 03:45:00 PM, [address] [place] [address] [address], [address], [place], [address], Progress Notes * Michele MEYESRDOB: 4 (40 yo M)Acc No.[id number]:05/20/2025 Patient: Michele DRAPER :1985 A ge:40 Y S ex:Male Address:[address] [place] [address], [address] Subjective: * Chief Complaints: * L ab order * Medical History: * Surgical History: * Hospitalization/Major Diagno stic Procedure: * Medications: Objective: * Vitals: * Physical Examination: Assessment: * Assessment: 1. R outine medical exam - Z00.00 (Primary) 2 . H TN (hypertension), benign - I10 3 . V itamin D deficiency - E55.9 4 . L ow testosterone - R79.89 5 . P rediabetes - R73.03 Plan: * Treatment: 2. H TN (hypertension), benign L AB: M-Complete Blood Count Auto Diff L AB: M-Comprehensive Metabolic Panel L AB: M-Hemoglobin A1C L AB: M-Lipid Panel L AB: M-Vitamin D 25 Hydroxy 3. V itamin D deficiency L AB: M-Complete Blood Count Auto Diff L AB: M-Comprehensive Metabolic Panel L AB: M-Hemoglobin A1C L AB: M-Lipid Panel L AB: M-Vitamin D 25 Hydroxy 4. L ow testosterone L AB: M-Complete Blood Count Auto Diff L AB: M-Comprehensive Metabolic Panel L AB: M-Hemoglobin A1C L AB: M-Lipid Panel L AB: M-Vitamin D 25 Hydroxy L AB: M-Testosterone 5. P rediabetes L AB: M-Complete Blood Count Auto Diff L AB: M-Comprehensive Metabolic Panel L AB: M-Hemoglobin A1C L AB: M-Lipid Panel L AB: M-Vitamin D 25 Hydroxy * Procedure Codes: * true * Date: Generated for Printi ng/Faxing/eTransmitting on: 0 05/23/2025 07:52 AM EDT
--- OUTSIDE RECORDS SUMMARY | 2025-05-23 07:52 | XMS_ITS | Patient Health Record ---
Author Organization [facility] JO[facility] FRANC[facility] Address [address] [place] [address] Care Team Providers Care Industrial Court Magistrate Name Role Phone Juan Maguire Primary Care Provider [phone] Nicole Lind Unavailable [phone] Nicole Bingham Unavailable [phone] Migration, Provider Unavailable Unavailable Allergies No Known Allergies Results Component Value Reference Range Notes Rapid Covid/Flu A-B Combo Reviewed date:09/07/2024 01:22:01 PM Interpretation: Performing Lab: Notes/Report: Rapid Covid POS Flu A NEG Flu B NEG Reason For Referral Reason Urology Referral Organization [facility] Referring Provider First Name Juan Referring Provider Last Name Bebetoenrike Referring Provider Speciality Internal M edicine Referred Organization [facility] Referred Address [facility] [place], [place],[address], Referred Provider Specialty Urology General Notes Karolina Gilmore 2024 02:50:27 PM >[facility] Referral Priority Routine Medications Medication SIG (Take, Route, Frequency, Duration) Notes Start Date End Date Status Xyzal Allergy 24HR 5 MG take one tablet by mouth in the evening orally once a day (in the evening); Duration: 30 days Active Ubrelvy 100 MG 1 tab(s) orally once a day prn migraine; Duration: 30 days Active Rosuvastatin Calcium 20 MG Take 1 tablet by mouth once daily; Duration: 90 Active Flonase Allergy Relief 50 MCG/ACT 2 spray(s) intranasally twice daily; Duration: 30 days 07/27/2016 Active Lisinopril 10 MG 1 tab(s) orally once a day Active Propranolol HCl ER 60 MG 1 cap(s) orally once a day Active Immunizations Vaccine Route Administration Date Status Comme nts Influenza-Fluzone 3+years (NON-MEDICARE) IM Intramuscular 06/29/2015 Administered Influenza-Fluzone 3+years (NON-MEDICARE) IM Intramuscular 07/21/2017 Administered Influenza-Fluzone 3+years (NON-MEDICARE) IM Intramuscular 08/08/2018 Administered Hep A Adult 2 Dose IM Intramuscular 01/30/2018 Administere d Hep A Adult 2 Dose IM Intramuscular 08/08/2018 Administere d Fluzone High Dose IM Intramuscular 05/21/2020 Administered Fluvirin--Influenza vaccine 3+ year IM Intramuscular 07/29/2014 Administered Flublok IM Intramuscular 08/19/2022 Administered Adacel (Tdap) IM Intramuscular 07/29/2014 Administered Problems Problem Type SNOMED Code ICD Code Onset Dates Problem Status W/U Status Risk Notes Problem Bilateral chronic serous otitis (610684052) Chronic serous otitis media, bilateral (H65.23) Active confirmed Problem Allergic rhinitis (75642812) Other allergic rhinitis (J30.89) Active confirmed Problem Body mass index 40+ - severely obese (028361330) BMI 45.0-49.9, adult (Z68.42) Active confirmed Problem Vitamin D deficiency (85573388) Vitamin D deficiency (E55.9) Active confirmed Problem Essential hypertension (33519629) HTN (hypertension), benign (I10) Active confirmed Problem Hyperlipidemia (96254110) Hyperlipemia, idiopathic familial (E78.5) Active confirmed Problem Seasonal allergy (482910496) Seasonal allergies (J30.2) Active confirmed Problem Obesity (044950330) Obesity (BMI 30-39.9) (E66.9) Active confirmed Problem Fatty liver (338233175) Fatty liver (K76.0) Active confirmed Problem Carotid atherosclerosis (886050007) Carotid atherosclerosis (I65.29) Active confirmed Problem Allergic rhinitis caused by pollen (34700098) Seasonal allergic rhinitis due to pollen (J30.1) Active confirmed Problem Refractory migraine without aura (627104691) Intractable migraine without aura and with status migrainosus (G43.011) Active confirmed Problem Kidney stone (00657661) Right nephrolithiasis (N20.0) Active confirmed Problem Melanocytic nevus of skin (459235919) Melanocytic nevus of skin (D22.9) Active confirmed Problem 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) Active confirmed Problem Episodic migraine (061240912718431) Episodic migraine (G43.909) Active confirmed Vital Signs Heart Rate 72 /min 03/13/2025 Temperature 98.2 degrees Fahrenheit 03/13/2025 Blood pressure diastolic 76 mm Hg 03/13/2025 Height 72 in 03/13/2025 Blood pressure systolic 120 mm Hg 03/13/2025 Weight 340 lbs 03/13/2025 BMI 46.11 kg/m2 03/13/2025 Encounters Encounter Location Date Provider Diagnosis [facility] [address] [place] [address] 12/14/2024 Provider Migration [facility] [address] [place] [address] 05/23/2024 Nicole Lelo Routine medical exam Z00.00 ; BMI 45.0-49.9, adult Z68.42 ; Seasonal allergies J30.2 ; HTN (hypertension), benign I10 ; Hyperlipemia, idiopathic familial E78.5 ; Episodic migraine G43.909 ; Low testosterone R79.89 and Vitamin D deficiency E55.9 [facility] [address] [place] [address] 09/07/2024 Juan Maguire Acute cough R05.1 ; COVID-19 U07.1 and Acute febrile illness R50.9 [facility] [address] [place] [address] 03/13/2025 Nicole Bingham Left Achilles tendinitis M76.62 [facility] [address] [place] [address] 04/05/2025 Juan Maguire [facility] [address] [place] [address] 05/20/2025 Nicole Lelo Routine medical exam Z00.00 ; HTN (hypertension), benign I10 ; Vitamin D deficiency E55.9 ; Low testosterone R79.89 and Prediabetes R73.03 Assessments Encounter Date Diagnosis (ICD Code) Assessment Notes Treatment Notes Treatment Clinical Notes Section Notes 05/23/2024 BMI 45.0-49.9, adult (ICD-10 - Z68.42) [...] them, raising the complexity of the visit 03/13/2025 Left Achilles tendinitis (ICD-10 - M76.62) Start NSAID TID, rest, ice, elise wrap. Encouraged by normal exam. No red flag symptoms. If no improvement in a week or suddenly unable to bear weight then patient should call office for x-ray and PT referral to be placed. Patient voices understanding and agrees with the plan of care above. 05/20/2025 Routine medical exam (ICD-10 - Z00.00) 05/20/2025 HTN (hypertension), benign (ICD-10 - I10) 09/07/2024 Acute febrile illness (ICD-10 - R50.9) Given propensity of community flu spread flu testing was also done, ordered and interpreted by me 05/20/2025 Vitamin D deficiency (ICD-10 - E55.9) 05/23/2024 Seasonal allergies (ICD-10 - J30.2) continue xyzal, flonase routinely 05/23/2024 HTN (hypertension), benign (ICD-10 - I10) well controlled on current regimen 05/20/2025 Low testosterone (ICD-10 - R79.89) 05/20/2025 Prediabetes (ICD-10 - R73.03) 05/23/2024 Hyperlipemia, idiopathic familial (ICD-10 - E78.5) continue rosuvastatin, discussed lower carb diet, higher fiber and possible addition of fish oil 05/23/2024 Episodic migraine (ICD-10 - G43.909) well [...] 06/19/2020 Physical Therapy 06/30/2020 C-MISC CULTURE 05/20/2015 M-Complete Blood Count Auto Diff 025 M-Comprehensive Metabolic Panel 05/20/20 25 M-Hemoglobin A1C 05/20/2025 M-Lipid Panel 05/20/2025 M-Vitamin B12 04/13/2023 M-Vitamin D 25 Hydroxy 05/20/2025 M-Testosterone 05/20/2025 M-COVID 19 PCR SEND OUT 06/26/2020 M-COVID PCR SINGLE RAPID 06/23/2020 Next Appt Details Provider Name:Nicole Portercharlene ce, 05/29/2025 03:45:00 PM, [address] [facility] [address] [facility], [address], [place], [address], Insurance Providers Payer Name Payer Address Payer Phone Subscriber Number Group Number Insured Name Patient Relationship to Insured Coverage Start Date Coverage End Date [employer] [address] [address] [place] [address] [id number] [phone] Michele Jackson Self - patient is [...]
--- OUTSIDE RECORDS SUMMARY | 2025-05-23 07:52 | XMS_ITS | Clinical Summary ---
Author Organization [facility] [place] [place] [address] Care Team Providers Care Vulcanizer Rubber Plate Name Role Phone Unavailable Primary Care Provider [...] Date Last Done Comments [facility]-Depression Screening 1985 [facility]-/Child/Adol SDOH Screenings 1985 [facility]-Varicella Vaccines (1 of 2 - 13+ 2-dose series) 01/12/1997 [facility]- SDOH Screenings 01/12/2002 [facility]-Adult SDOH Screenings 01/12/2002 [facility]-DTaP,Tdap,and Td Vaccines (1 - Tdap) 01/12/2003 [facility]-Hepatitis B Vaccines (1 of 3 - 19+ 3-dose series) 01/12/2003 HPV Vaccines (1 - 3-dose SCDM series) 01/12/2011 [id number] Vaccine (3 - 2023- season) 2024 05/04/2021, 04/06/2021 [facility]-Influenza Vaccine (#1) 05/12/202508/19, 08/08/2018, 07/21/2017 [facility]-Zoster Vaccines (1 of 2) [...]
[2025-05-23 08:15] LABS: Hematocrit 43.0 % (42.0-52.0); Hemoglobin 14.1 g/dL (14.1-18.0); Immature Granulocytes % 0.3 %; Mean Corpuscular HGB Conc 32.8 g/dL (31.8-35.4); Mean Corpuscular Hemoglobin 29.1 pg (27.0-31.2); Mean Corpuscular Volume 88.7 fl (80-94); Nucleated Red Blood Cells % 0 %; Platelet Count 297 K/mm3 (142-424); Red Blood Count 4.85 M/mm3 (4.60-6.20); Red Cell Distribution Width-SD 44.0 fL; White Blood Count 7.9 K/mm3 (4.8-10.8)
[2025-05-23 08:47] LABS: Alanine Aminotransferase 34 U/L (12-78); Albumin Level 4.3 g/dl (3.5-5.0); Albumin/Globulin Ratio 1.5 (1.1-1.8); Alkaline Phosphatase 64 U/L (38-126); Anion Gap 12.2 mEq/L (5-15); Aspartate Amino Transferase 32 U/L (17-59); Bilirubin,Total 0.6 mg/dl (0.2-1.3); Blood Urea Nitrogen 11 mg/dl (9-20); Calcium 9.2 mg/dl (8.4-10.2); Carbon Dioxide 27 mmol/L (22.0-30.0); Chloride 103 mmol/L (98-107); Cholesterol 110 mg/dl (140-200); Creatinine,Serum 0.90 mg/dl (0.66-1.25); Estimated Glomerular Filt Rate 93 ml/min (>60); GFR (African American) 113 ML/MIN (>60); Globulin 2.9 g/dL (1.3-3.2); Glucose 110 mg/dl (74-100); HDL Cholesterol 31 mg/dl (40-60); Potassium 4.2 mmoL/L (3.5-5.1); Sodium 138 mmol/L (136-145); Total Protein,Serum 7.2 g/dl (6.3-8.2); Triglycerides 145 mg/dl (30-150)
[2025-05-23 08:58] LABS: Hemoglobin A1C 5.9 % (4.0-6.0)
[2025-05-23 09:04] LABS: 25-OH Vitamin D, Total 17.3 ng/mL (30-100)
[2025-05-24 08:20] LABS: Testosterone,Total 261 ng/dL (264-916)
== END 2025-05-23 23:59 | disposition home or self-care (01) ==
LOC: LAB 07:50
PROVIDERS: PCP Nurse Practitioner Family; Visit Provider Nurse Practitioner Family
DX: Z00.00 Encounter for general adult medical examination without abnormal findings (principal); I10 Essential (primary) hypertension; E55.9 Vitamin D deficiency, unspecified; R79.89 Other specified abnormal findings of blood chemistry; R73.03 Prediabetes
CPT/HCPCS: 36415; 80053; 80061; 82306; 83036; 84403; 85025